=== PATIENT | male | born 1935 | race Caucasian/White ===

== ENCOUNTER 2018-01-02 13:55 | Outpatient (CLI) | payer MEDICARE | END 2018-01-02 13:56 | disposition home or self-care (01) | LOC: BICCT 13:55 | PROVIDERS: ATTEND Anesthesiology Pain Medicine | DX: M47.26 Other spondylosis with radiculopathy, lumbar region (principal); M43.16 Spondylolisthesis, lumbar region; M99.83 Other biomechanical lesions of lumbar region; N28.9 Disorder of kidney and ureter, unspecified | CPT/HCPCS: 72100; 72131 ==

== ENCOUNTER 2018-01-15 10:07 | Outpatient (CLI) | payer MEDICARE | END 2018-01-15 10:08 | disposition home or self-care (01) | LOC: BICULT 10:07 | PROVIDERS: ATTEND Anesthesiology Pain Medicine | DX: N28.89 Other specified disorders of kidney and ureter (principal); N28.1 Cyst of kidney, acquired | CPT/HCPCS: 76770 ==

== ENCOUNTER → 2018-02-13 | Day surgery (SDC) | payer MEDICARE ==
[~2018-02-13] MED LIST: Prevnar 13-Val Conj/PF 0.5 ML SYRINGE IM ONE
[2018-02-13 09:35] VITALS: TEMP 97; BMI 27.1
--- NOTE | 2018-02-13 13:03 | RAD ---
LUMBAR MYELOGRAM: History: Lumbar radiculopathy. Comparison: None. Exposure: 1.2 minutes. 1551.9 mGy*cm^2. FINDINGS: Initial two view radiographs of the lumbar spine demonstrate five lumbar type vertebral bodies. There is extensive osteophyte formation throughout the lumbar spine. Mild leftward curvature. There is 2.6 mm of retrolisthesis of L3 upon L4, 5.2 mm anterolisthesis of L5 upon S1. Vacuum disc phenomenon at L4-5 and L5-S1. Hypertrophic changes of the endplates was identified throughout the lumbar spine. Successful lumbar puncture for intrathecal contrast administration. A total of 10 cc of Isovue M 200 contrast was administered intrathecally. No immediate or post procedure complication. Technique: Consent was obtained to perform a lumbar puncture for intrathecal contrast administration. The back w as evaluated. The L4-5 level was deemed appropriate. The skin was prepped and draped in sterile fashi on. 1% Lidocaine, buffered with sodium bicarbonate used for local anesthesia. Under fluoroscopic guid ance, a 22 gauge spinal needle was advanced into the CSF space. Using short tubing catheter, a total of 10 cc of Isovue 200M contrast was administered intrathecally. Patient tolerated the procedure well . No immediate or post procedure complications. IMPRESSION: Successful lumbar puncture at the L4-5 level for intrathecal contrast administration. Please refer to post myelogram CT for further detail. POS: BRYON
--- NOTE | 2018-02-13 14:06 | CT ---
LUMBAR SPINE CT POST MYELOGRAM: Date: 02/13/18 HISTORY: Lumbar radiculopathy. COMPARISON: None. TECHNIQUE: Lumbar spine CT is performed after myelogram. Reformatted images are submitted for interpretation. FINDINGS: Right renal cyst measuring 2.5 cm. No retroperitoneal mass, lymphadenopathy, or hematoma. Aorta demon strates atherosclerosis. Mild prominence of the infrarenal aorta without definite aneurysm. There is evidence of diverticulosis, without evidence of diverticulitis. Conus medullaris terminates at the T12-L1 disc space level. Five lumbar-type vertebral bodies. Prominent osteophyte formation at the L1-L2 level. Mild leftward c urvature of the lumbar spine. Extensive hypertrophic changes involving the posterior elements at L2, L3, L4, and L5. Vacuum disc ph enomenon at L4-5 and L5-S1. Additional vacuum disc phenomenon at L1-L2 and L2-L3. 3.2 mm of retrolisthesis of L1 upon L2, 2.4 mm of retrolisthesis of L2 upon L3, 6.4 mm anterolisthesi s of L4 upon L5, 5.2 mm anterolisthesis of L5 upon S1. Vacuum joint phenomenon noted in the left face t joint at L4-L5. No evidence of spondylolisthesis, no evidence of spondylolysis. There is evidence of some extradural contrast along the posterior central spinal canal at T12, L1, an d to a lesser extent at L4. T11-T12: No significant central canal stenosis. Foramina are patent. T12-L1: No significant central canal stenosis. Foramina are patent. L1-L2: Broad based disc bulge, ligamentum flavum thickening, and facet hypertrophy result in mild central ca nal stenosis. Mild to moderate bilateral foraminal narrowing. L2-L3: There is ligamentum flavum thickening and facet hypertrophy. Mild central canal stenosis due to disc material and posterior element hypertrophy. Moderato right and mild left foraminal narrowing. L3-L4: Generalized disc bulge, ligamentum flavum thickening, and facet hypertrophy result in mild to moderat e central canal stenosis. Mild to moderate right and mild left foraminal narrowing. L4-L5: Broad based disc bulge, ligamentum flavum thickening, and facet hypertrophy result in severe central canal stenosis. Moderate right and moderate to severe left foraminal narrowing due to disc material a nd posterior element hypertrophy. L5-S1: Posterior element hypertrophy results in mild to moderate central canal stenosis. Right neural forame n is patent. Severe left foraminal narrowing due to osteophyte formation of the end plate and left fa cet hypertrophy. IMPRESSION: 1. Significant central canal stenosis at L4-5. 2. Varying degrees of foramina stenosis as described above. 3. Spondylolisthesis as described above. POS: BRYON
== END ==
LOC: RAD 08:36
PROVIDERS: ATTEND Neurological Surgery
DX: M48.061 Spinal stenosis, lumbar region without neurogenic claudication (principal); M47.26 Other spondylosis with radiculopathy, lumbar region; M43.16 Spondylolisthesis, lumbar region; I25.2 Old myocardial infarction; Z87.891 Personal history of nicotine dependence; Z79.82 Long term (current) use of aspirin; Z79.899 Other long term (current) drug therapy; Z88.0 Allergy status to penicillin; Z88.8 Allergy status to other drugs, medicaments and biological substances
CPT/HCPCS: 62304; 72132

== ENCOUNTER 2018-05-14 08:48 | Outpatient (CLI) | payer MEDICARE ==
[2018-05-14 11:32] LABS: Hemoglobin 13.1 g/dL (14.0-18.0); Mean Corpuscular HGB CONC 31.9 g/dL (32.0-36.0); Mean Corpuscular Hemoglobin 32.4 pg (27.0-31.0); Mean Platelet Volume 11.9 fL (7.4-10.4); Platelet Count 297 thou/uL (130-400); RBC Distribution Width 14.1 % (11.5-14.5); Red Blood Cell (RBC) Count 4.03 mill/uL (4.70-6.10); White Blood Cell (WBC) Count 6.6 thou/uL (4.8-10.8)
[2018-05-14 11:33] LABS: Prothrombin Time 13.6 SEC (12.0-14.7)
[2018-05-14 11:51] LABS: Anion Gap 9 mmol/L (10-20); BUN (Urea Nitrogen) 14 mg/dL (8.4-25.7); Calc. Creatinine Clearance 0 mL/min (70-130); Calcium 9.4 mg/dL (7.8-10.44); Carbon Dioxide 28 mmol/L (23-31); Chloride 106 mmol/L (98-107); Estimated GFR-MDRD 87; Glucose 95 mg/dL (83-110); Potassium 4.5 mmol/L (3.5-5.1); Sodium 138 mmol/L (136-145)
--- NOTE | 2018-05-16 15:07 | EKG ---
Test Reason : Blood Pressure : / mmHG Vent. Rate : 060 BPM Atrial Rate : 060 BPM P-R Int : 080 ms QRS Dur : 144 ms QT Int : 446 ms P-R-T Axes : 050 -27 086 degrees QTc Int : 446 ms AV sequential or dual chamber electronic pacemaker No previous ECGs available Confirmed by THONY HAMMOND MD ([id number]) on 05/16/2018 3:07:17 PM Referred By: PONCHO Confirmed By:THONY HAMMOND MD
== END 2018-05-14 08:49 | disposition home or self-care (01) ==
LOC: LABBT 08:48
PROVIDERS: ATTEND Neurological Surgery
DX: Z01.818 Encounter for other preprocedural examination (principal); M43.16 Spondylolisthesis, lumbar region; M48.061 Spinal stenosis, lumbar region without neurogenic claudication
CPT/HCPCS: 80048; 85027; 85610; 85730; 93005; 93010

== ENCOUNTER 2018-05-14 09:00 | Inpatient (IN) | payer MEDICARE ==
--- NOTE | 2018-05-14 13:53 | HP ---
CHIEF COMPLAINT: Lumbar back pain. HISTORY OF PRESENT ILLNESS: Mr. Rome is a pleasant 82-year-old man who began to have back pain and leg symptoms after doing his spring gardening last year. At first, the symptoms were bilateral, but as time passed and injections have been done the right is the side that bothers him now. The left i s pain free. There is no bowel or bladder symptoms. The right leg pain comes on with walking more t leonard 100 feet or standing too long. There is a sense that the leg weakens with more time spent uprigh t. Leaning forward or finding somewhere to sit makes the pain better. He is more symptomatic in the morning when just rising from bed. REVIEW OF SYSTEMS: A 10-point review of symptoms has been completed and is negative other than state d above in the HPI. PAST MEDICAL HISTORY: Heart attack in 1996, stroke in 02/2016 and arthritis. PAST SURGICAL HISTORY: Stents placed in 1996, defibrillator in 2013, bilateral knee replacements, AC DF in 1969, and cervical laminectomy in 1986. FAMILY HISTORY: Father is . Mother is . SOCIAL HISTORY: The patient is a nonsmoker, does not use any tobacco products, does not drink alcoho l or use any other illicit drugs. 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 MEDICATIONS: CoQ10, digoxin, Entresto, Ezetimibe, Samotidine, finasteride, fish oil, fluconazole, mu ltivitamin, Metamucil, aspirin. ALLERGIES: PENICILLIN, HYDROCODONE, STATINS, CARVEDILOL, METOPROLOL. PHYSICAL EXAMINATION: RESPIRATORY: Regular work of breathing on room air. Normal chest rise bilaterally symmetrical. CARDIOVASCULAR: Regular rate and rhythm. Normal S1, S2. NEUROLOGIC: Cranial nerves are intact. Cerebellar exam: There is no truncal ataxia. Gait and stat ion are normal. Toe touch, toe, heel and tandem walking are performed smoothly without weakness or a praxia. Motor exam: There is normal strength in the iliopsoas, quadriceps, hamstrings, anterior tib ial, EHL, gastroc, and toe flexors. Sensory exam: There is no dermatomal sensory loss in L1, L2, L3 , L4, L5 or S1. EXTREMITIES: Lower extremities: Orthopedic, negative SLR. Reflex exam; reflexes are normal at the patellar and absent at the Achilles. SPINE: Spinal exam, there is no tenderness to palpation and percussion along the midline spine from T12 through S1. CT: Severe degenerative arthritic changes and sacroiliac changes and Baastrup's phenomenon also like ly right lateral recess disease at L4-5, S1. Spine appears stable in flexion, extension in spite of multiple listhesis. 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 PLAN: Dr. Ochoa has offered a laminectomy and T-lift. Informed consent: We have discussed jomar cations, risks, benefits, and alternatives, and expected results from surgery. The risks discussed i ncluded, but were not limited to bleeding, infection, CSF leak, nerve damage, weakness, incontinence, cauda equina injury, arachnoiditis, paralysis, ventilator dependence, wheelchair dependence, loss of vision, hardware malplacement, cardiopulmonary complications of anesthesia or . Long-term comp lications discussed included, but were not limited to degeneration of surrounding disks and the need for further surgery. The patient states he understands the risks and is willing to proceed with surg aric.
[2018-05-15] MEDS ORDERED: Clindamycin/D5W 900 mg/50 ml Premix Bag ONE (06:11)
[2018-05-15] MEDS ORDERED: Levofloxacin 500 mg/D5W 100 ml Premix Bag ONE (06:11)
[2018-05-15] MEDS ORDERED: Thrombin 5000 UNITS/5 ML VIAL ONE (06:18)
[2018-05-15] MEDS ORDERED: Sodium Chloride 0.9% 30 ML ONE (06:18)
[2018-05-15] MEDS ORDERED: Bupivacaine HCl 0.5%/Epinephrine 1:200,000/PF 30 ml Vial ONE (06:18)
[2018-05-15] MEDS ORDERED: Fentanyl 250 MCG/5 ML VIAL ONE (06:51)
[2018-05-15] MEDS ORDERED: PROPOFOL 200 MG/20 ML VIAL ONE (11:12)
[2018-05-15] MEDS ORDERED: Glycopyrrolate 0.2 MG/ML 5 ML SYRINGE ONE (11:12)
[2018-05-15] MEDS ORDERED: ePHEDrine/0.9% NaCl/PF SYRINGE 50 mg/10 ml ONE (11:12)
[2018-05-15] MEDS ORDERED: Dexamethasone 20 MG/5 ML VIAL ONE (11:12)
[2018-05-15] MEDS ORDERED: Ondansetron HCl/PF 4 MG/2 ML Vial ONE (11:12)
[2018-05-15] MEDS ORDERED: PHENYLEPHRINE-NS 100 MCG/ML 10 ML SYRINGE ONE (11:12)
[2018-05-15] MEDS ORDERED: Ondansetron HCl/PF 4 MG/2 ML Vial IVP PRN (11:18)
[2018-05-15] MEDS ORDERED: Promethazine HCl 25 MG/ML VIAL IM PRN ×2 (11:18→14:51)
[2018-05-15] MEDS ORDERED: Promethazine HCl 25 MG/ML VIAL SLOW IVP PRN (11:18)
[2018-05-15] MEDS ORDERED: Rocuronium Bromide 50 MG/5 ML VIAL ONE (11:25)
[2018-05-15] MEDS ORDERED: Fentanyl 100 MCG/2 ML VIAL ONE ×3 (14:10→16:13)
--- NOTE | 2018-05-15 14:37 | OP ---
DATE OF PROCEDURE: 05/15/2018 NEUROSURGERY OPERATIVE NOTE SURGEON: Alise Ochoa M.D. ELECTROCARDIOGRAPH OPERATOR: Adri Villalobos PA-C. PREOPERATIVE INDICATION: Treat pain, prevent neurological deterioration. PREOPERATIVE DIAGNOSES: Degenerative lumbar spine disease, spondylolisthesis at L4-L5 and L5-S1, sco liosis, lumbar stenosis, neurogenic claudication, foraminal disease. POSTOPERATIVE DIAGNOSES: Degenerative lumbar spine disease, spondylolisthesis at L4-L5 and L5-S1, sc oliosis, lumbar stenosis, neurogenic claudication, foraminal disease. OPERATIVE PROCEDURE: Decompressive laminectomy, medial facetectomy and foraminotomy for decompressio n of neural elements at L3-L4, L4-L5 and L5-S1, transforaminal lumbar interbody arthrodesis, placemen t of intervertebral biomechanical device at L4-L5 and L5-S1, pedicle screw and kali instrumentation at L4-L5 and L5-S1, posterolateral arthrodesis L4-L5, L5-S1. PREOPERATIVE MEDICATION: Levaquin 500 mg IV, clindamycin 900 mg IV. DRAIN NUMBER: One. DRAIN TYPE: 10-Divehi Kin. PROCEDURE IN DETAIL: The patient was brought to the operating room. General endotracheal anesthesia was induced. The patient was positioned on the [place] frame with his chest and hips supported by t he appropriate attachments. A lateral fluoro radiograph was used to plan our incision. The lumbar s kin was sterilely prepped and draped. We opened with a 10-blade knife and controlled bleeding with b ipolar and monopolar cautery. We used monopolar cautery to dissect through subcutaneous tissues to t he thoracodorsal fascia. The fascia was incised in the midline and reflected the paraspinal muscles off the spinous process and lamina of L3, L4, L5 and S1. A self-retaining retractor was placed and a lateral fluoro radiograph was used to confirm the levels upon which we were operating. We then used Adson and Kerrison rongeurs to fashion a laminectomy from S1 all the way up to L3. We widened our l aminectomy defect until we were flush with the pedicles at L3, L4, L5 and S1. We decompressed the la teral recesses by performing medial facetectomies. We ensured that the neural elements were all deco mpressed at the interspaces and out their foramina and by performing wide foraminotomies over the exi ting nerve roots. With our neural decompression secure, we turned our attention to arthrodesis. Using bony anatomic landmarks, palpation of the medial portion of the pedicles and lateral fluoro rad iograph as a guide, we chose entry points for pedicle screws at L4, L5 and S1. We used the bone awl to create our trajectory and then tapped our trajectories. We placed pedicle screws bilaterally at L 4, L5 and S1. We removed the inferior articular process of L4 and L5. We widely opened the foramen at L4-L5 and L5 -S1. We accessed the disk space with a 15-blade knife through the open foramina and removed disk con tents using curettes and rongeurs. We measured the height of the interspace with a bone rasp. The l umbosacral interspace measured 9 mm and the L4-L5 interspace measured 12 mm. The appropriately sized PEEK intervertebral grafts were brought into the field. Our laminectomy bone was cleaned of all the ir soft tissue attachments, morselized and added to demineralized bone matrix as our fusion substrate . The substrate was packed into the interbody grafts and the grafts were advanced into the interspac es under radiographic guidance to the appropriate depth. We irrigated copiously with bacitracin irri gation. We used a high-speed drill to decorticate the transverse processes at L4 and L5 and the sacr al ala bilaterally. Over the decorticated bone, we left demineralized bone matrix and morselized aut ograft as our posterolateral fusion substrate. We placed rods down in the screw heads after we took a 360-degree image set using our isocentric C-arm. This image set confirmed adequate positioning of the pedicle screw instrumentation. The rods were placed and the screw heads and caps tightened over the rods. We used gentle compression across the interspace to keep the interbody grafts in place. W e tightened the caps down over the rods using a tliroa-xswracn-aaprqc mechanism to adequate tightness . We tunneled a drain inferiorly through a separate stab incision. Vancomycin powder was added to t he wound and we closed the wound in anatomic layers over the drain. A sterile dressing was applied. This was a clean case and no contamination.
[2018-05-15] MEDS ORDERED: Acetaminophen 325 MG TAB PO PRN (14:51)
[2018-05-15] MEDS ORDERED: Acetaminophen 650 MG Suppository PR PRN (14:51)
[2018-05-15] MEDS ORDERED: diphenhydrAMINE 50 MG/ML VIAL IVP PRN (14:51)
[2018-05-15] MEDS ORDERED: diphenhydrAMINE 25 MG CAP PO PRN (14:51)
[2018-05-15] MEDS ORDERED: Bisacodyl 10 MG SUPP PR PRN (14:51)
[2018-05-15] MEDS ORDERED: Promethazine 25 MG TAB PO PRN (14:51)
[2018-05-15] MEDS ORDERED: Zolpidem Tartrate 5 MG TAB PO PRN (14:51)
[2018-05-15] MEDS ORDERED: Milk Of Magnesia 30 ML UDCUP PO PRN (14:51)
[2018-05-15] MEDS ORDERED: Fleet Enema 133 ML BOT PR PRN (14:51)
[2018-05-15] MEDS ORDERED: Calcium Carbonate 500 MG ChewTAB PO PRN (15:03)
[2018-05-15 15:32] LABS: #Basophils 0.1 thou/uL (0.0-0.2); #Lymphocytes 1.1 thou/uL (1.20-3.40); #Monocytes 0.3 thou/uL (0.11-0.59); #Neutrophils 11.5 thou/uL (1.40-6.50); %Basophils 0.5 % (0.0-1.0); %Eosinophils 0.2 % (0.0-10.0); %Lymphocytes 8.2 % (21.0-51.0); %Monocytes 2.6 % (0.0-10.0); %Neutrophils 88.5 % (42.0-75.0); Hemoglobin 11.3 g/dL (14.0-18.0); Mean Corpuscular HGB CONC 33.8 g/dL (32.0-36.0); Mean Corpuscular Hemoglobin 34.1 pg (27.0-31.0); Mean Platelet Volume 11.5 fL (7.4-10.4); Platelet Count 276 thou/uL (130-400); Red Blood Cell (RBC) Count 3.31 mill/uL (4.70-6.10)
[2018-05-15 15:44] LABS: Large Platelets SLIGHT; MDiff Complete? YES; Ovalocytes SLIGHT = 2-5 cells (100X) (0-1/hpf); PLT Morphology Comment Appears Adequate; Polychromasia SLIGHT = 2-3 cells (100X) (0-2/hpf)
[2018-05-15] MEDS: Ketorolac Tromethamine 30 MG/ML VIAL IVP SCH ×2 (18:42→23:35)
[2018-05-15] MEDS: Sodium Chloride 0.9% 1,000 ML IV SCH (20:28)
[2018-05-15] MEDS ORDERED: OLOPATADINE HCL EA NARE SCH (21:00)
[2018-05-15] MEDS: Ezetimibe 10 MG TAB PO SCH (22:51)
[2018-05-15] MEDS: Fluticasone Propionate Nasal Spray 16 gm Bottle NASAL SCH (22:52)
[2018-05-15] MEDS: Digoxin 0.125 MG TAB PO SCH (22:53)
[2018-05-15] MEDS: Sacubitril 49 MG/Valsartan 51 MG TABLET PO SCH (22:53)
[2018-05-15] MEDS: Clindamycin/D5W 900 MG in Premix Bag 1 BAG IVPB SCH (22:54)
[2018-05-15] MEDS: Sodium Chloride 0.9% 500 ML IVPB SCH (23:00)
[2018-05-15 23:06] VITALS: BMI 26.2
[2018-05-16] MEDS: Sodium Chloride 0.9% 500 ML IVPB SCH (00:43)
[2018-05-16 04:10] LABS: #Eosinphils 0.1 thou/uL (0.0-0.7); #Lymphocytes 1.5 thou/uL (1.20-3.40); #Monocytes 0.5 thou/uL (0.11-0.59); #Neutrophils 9.9 thou/uL (1.40-6.50); %Basophils 0.2 % (0.0-1.0); %Eosinophils 0.6 % (0.0-10.0); %Lymphocytes 12.2 % (21.0-51.0); %Monocytes 4.3 % (0.0-10.0); %Neutrophils 82.8 % (42.0-75.0); Hemoglobin 9.4 g/dL (14.0-18.0); Mean Corpuscular HGB CONC 33.8 g/dL (32.0-36.0); Mean Corpuscular Hemoglobin 34.2 pg (27.0-31.0); Mean Platelet Volume 11.5 fL (7.4-10.4); Platelet Count 232 thou/uL (130-400); Red Blood Cell (RBC) Count 2.73 mill/uL (4.70-6.10); White Blood Cell (WBC) Count 11.9 thou/uL (4.8-10.8)
[2018-05-16] MEDS: Sodium Chloride 0.9% 1,000 ML IV SCH ×2 (05:04→22:26)
[2018-05-16] MEDS: Ketorolac Tromethamine 30 MG/ML VIAL IVP SCH ×3 (05:19→17:23)
[2018-05-16] MEDS: Clindamycin/D5W 900 MG in Premix Bag 1 BAG IVPB SCH ×3 (05:20→22:00)
--- NOTE | 2018-05-16 07:24 | PRG ---
DATE OF SERVICE: 05/16/2018 I saw Mr. Rome this morning. He is 1 day out from a 3-level decompression and 2 level fusion of th e lumbosacral spine. Mr. Rome has had significant drain output reported by the nurse, but there is nothing on the electronic chart to tell me what the accurate volume is. Mr. Rome is awake and sadaf rt this morning. He is sitting up in bed. He says he feels great. There is no radiating pain down the lower extremities. He is happy with the results of his operation thus far and would like to get out of bed with physical therapy today. We will make arrangements for that to happen. We will kimo riaze to monitor his drain output and once it tapers below our threshold of average of 5 mL an hour, th en we will remove it.
[2018-05-16] MEDS: Ubidecarenone 50 MG CAP PO SCH (09:18)
[2018-05-16] MEDS: Sacubitril 49 MG/Valsartan 51 MG TABLET PO SCH ×2 (09:18→21:59)
[2018-05-16] MEDS: Finasteride 5 MG TAB PO SCH (09:19)
[2018-05-16] MEDS: Metamucil PACK PO SCH (09:20)
[2018-05-16] MEDS: Fluticasone Propionate Nasal Spray 16 gm Bottle NASAL SCH ×2 (09:20→22:25)
[2018-05-16] MEDS: Famotidine 20 MG TAB PO SCH ×2 (09:21→18:07)
[2018-05-16] MEDS: Acetaminophen/Codeine 30-300mg Tablet PO PRN ×3 (14:49→22:15)
[2018-05-16] MEDS: Ezetimibe 10 MG TAB PO SCH (21:59)
[2018-05-16] MEDS: Multivitamin W/ Minerals 1 TAB PO SCH (22:00)
[2018-05-16] MEDS: Digoxin 0.125 MG TAB PO SCH (22:03)
[2018-05-16] MEDS: Mag-Al 1200 mg/1200 mg/30 ML UDCUP PO PRN (22:16)
[2018-05-17] MEDS: Ketorolac Tromethamine 30 MG/ML VIAL IVP SCH ×3 (01:15→20:53)
[2018-05-17] MEDS: Clindamycin/D5W 900 MG in Premix Bag 1 BAG IVPB SCH ×3 (06:41→20:55)
[2018-05-17] MEDS: Sodium Chloride 0.9% 1,000 ML IV SCH ×5 (07:40→14:04)
[2018-05-17] MEDS: Acetaminophen/Codeine 30-300mg Tablet PO PRN ×2 (09:03→20:52)
[2018-05-17] MEDS: Sacubitril 49 MG/Valsartan 51 MG TABLET PO SCH ×2 (09:04→20:54)
[2018-05-17] MEDS: Finasteride 5 MG TAB PO SCH (09:04)
[2018-05-17] MEDS: Famotidine 20 MG TAB PO SCH (09:04)
[2018-05-17] MEDS: Ubidecarenone 50 MG CAP PO SCH (09:04)
[2018-05-17 10:15] LABS: #Basophils 0.1 thou/uL (0.0-0.2); #Eosinphils 0.4 thou/uL (0.0-0.7); #Lymphocytes 1.5 thou/uL (1.20-3.40); #Monocytes 0.6 thou/uL (0.11-0.59); #Neutrophils 6.7 thou/uL (1.40-6.50); %Basophils 0.6 % (0.0-1.0); %Eosinophils 4.1 % (0.0-10.0); %Lymphocytes 16.4 % (21.0-51.0); %Monocytes 6.6 % (0.0-10.0); %Neutrophils 72.3 % (42.0-75.0); Hemoglobin 8.9 g/dL (14.0-18.0); Mean Corpuscular HGB CONC 33.1 g/dL (32.0-36.0); Mean Corpuscular Hemoglobin 33.3 pg (27.0-31.0); Mean Platelet Volume 11.4 fL (7.4-10.4); Platelet Count 217 thou/uL (130-400); Red Blood Cell (RBC) Count 2.66 mill/uL (4.70-6.10); White Blood Cell (WBC) Count 9.3 thou/uL (4.8-10.8)
[2018-05-17 10:37] LABS: ALT (SGPT) 14 U/L (8-55); AST (SGOT) 23 U/L (5-34); Albumin 3.3 g/dL (3.4-4.8); Alkaline Phosphatase 60 U/L (40-150); Anion Gap 10 mmol/L (10-20); BUN (Urea Nitrogen) 23 mg/dL (8.4-25.7); Bilirubin, Total 1.3 mg/dL (0.2-1.2); Calc. Creatinine Clearance 71 mL/min (70-130); Calcium 8.5 mg/dL (7.8-10.44); Carbon Dioxide 25 mmol/L (23-31); Chloride 101 mmol/L (98-107); Estimated GFR-MDRD 72; Globulin 2.4 g/dL (2.4-3.5); Glucose 102 mg/dL (83-110); Protein, Total 5.7 g/dL (5.8-8.1); Sodium 132 mmol/L (136-145)
[2018-05-17] MEDS: Mag-Al 1200 mg/1200 mg/30 ML UDCUP PO PRN (11:03)
[2018-05-17] MEDS: Fluticasone Propionate Nasal Spray 16 gm Bottle NASAL SCH ×2 (12:21→20:55)
[2018-05-17] MEDS: Metamucil PACK PO SCH (12:21)
[2018-05-17] MEDS: traMADol HCl 50 MG TAB PO PRN (14:15)
--- NOTE | 2018-05-17 14:19 | PRG ---
DATE OF SERVICE: 05/17/2018 SUBJECTIVE: Mr. Rome is postoperative day 2 from lumbar decompression and fusion. He appears to b e in very good spirits this morning and other than left hip pain, there is very likely lumbar radicul itis. He is mobilizing to the chair. His hemoglobin is 8.9 this morning, it was 9.4 yesterday. His drain output has been recorded as almost half a liter, which I find a bit unusual given the change o f hemoglobin from 9.4-8.9. He did have a blood pressure overnight at 4 in the morning that was 90/46 . However, he has no tachycardia with a pulse of 60. What I would do is discontinue his Toradol and we will continue to monitor his drain output. I do not think he is demonstrating any signs or sympt oms of symptomatic postoperative anemia. We will also have him evaluated by inpatient rehabilitation .
[2018-05-17] MEDS: Multivitamin W/ Minerals 1 TAB PO SCH (20:54)
[2018-05-17] MEDS: Ezetimibe 10 MG TAB PO SCH (20:54)
[2018-05-17] MEDS: Digoxin 0.125 MG TAB PO SCH (20:54)
[2018-05-18] MEDS: Ketorolac Tromethamine 30 MG/ML VIAL IVP SCH (04:06)
[2018-05-18] MEDS: Sodium Chloride 0.9% 1,000 ML IV SCH ×5 (04:08→20:54)
[2018-05-18] MEDS: Clindamycin/D5W 900 MG in Premix Bag 1 BAG IVPB SCH ×3 (05:53→20:55)
[2018-05-18] MEDS: Metamucil PACK PO SCH (08:36)
[2018-05-18] MEDS: Ubidecarenone 50 MG CAP PO SCH (08:36)
[2018-05-18] MEDS: Finasteride 5 MG TAB PO SCH (08:36)
[2018-05-18] MEDS: Famotidine 20 MG TAB PO SCH (08:36)
[2018-05-18] MEDS: Fluticasone Propionate Nasal Spray 16 gm Bottle NASAL SCH ×2 (08:37→21:48)
[2018-05-18] MEDS: Acetaminophen/Codeine 30-300mg Tablet PO PRN ×3 (08:47→19:19)
[2018-05-18 08:59] LABS: Hemoglobin 8.9 g/dL (14.0-18.0); Mean Corpuscular Hemoglobin 34.3 pg (27.0-31.0); Mean Platelet Volume 11.7 fL (7.4-10.4); Platelet Count 216 thou/uL (130-400); RBC Distribution Width 14.2 % (11.5-14.5); Red Blood Cell (RBC) Count 2.58 mill/uL (4.70-6.10); White Blood Cell (WBC) Count 7.6 thou/uL (4.8-10.8)
[2018-05-18 09:05] LABS: Anion Gap 10 mmol/L (10-20); BUN (Urea Nitrogen) 19 mg/dL (8.4-25.7); Calc. Creatinine Clearance 82 mL/min (70-130); Calcium 8.2 mg/dL (7.8-10.44); Carbon Dioxide 22 mmol/L (23-31); Chloride 106 mmol/L (98-107); Estimated GFR-MDRD 85; Glucose 99 mg/dL (83-110); Potassium 4.4 mmol/L (3.5-5.1); Sodium 134 mmol/L (136-145)
[2018-05-18 09:22] LABS: #Basophils 0.1 thou/uL (0.0-0.2); #Eosinphils 0.6 thou/uL (0.0-0.7); #Lymphocytes 1.6 thou/uL (1.20-3.40); #Monocytes 0.5 thou/uL (0.11-0.59); #Neutrophils 4.8 thou/uL (1.40-6.50); %Eosinophils 7.8 % (0.0-10.0); %Lymphocytes 21.2 % (21.0-51.0); %Neutrophils 62.9 % (42.0-75.0); Acanthocytes SLIGHT = 1-5 cells (100X) (None Seen); Burr Cells SLIGHT = 2-5 cells (100X) (0-1/hpf); Hypochromia SLIGHT = 6-15 cells (100X) (0-5/hpf); Large Platelets SLIGHT; MDiff Complete? YES; PLT Morphology Comment Appears Adequate; Polychromasia SLIGHT = 2-3 cells (100X) (0-2/hpf)
[2018-05-18] MEDS: Sacubitril 49 MG/Valsartan 51 MG TABLET PO SCH ×2 (10:44→20:55)
[2018-05-18] MEDS: tiZANidine HCl 4 MG TAB PO PRN ×2 (10:44→19:53)
--- NOTE | 2018-05-18 11:07 | PRG ---
DATE OF SERVICE: 05/18/2018 SUBJECTIVE: Mr. Rome is 3 days out from lumbar decompression and fusion. He has pain when he trie s to sit up in bed. He is not on muscle relaxants. We will initiate those. We will augment his Tyl enol #3 with the tizanidine and stop his Toradol. His drain output remains a bit on the high side at 220 mL over the last 24 hours. Although his hemoglobin this morning remains stable at 8.9, it was 8 .9 yesterday and 9.4 the day before. His blood pressure remains stable in the 100-134 range systolic and 50-70 range diastolic. He does not have tachycardia with a heart rate of 67-70, he is afebrile. Neurologically, he continues to do well. We just simply need to get his pain under better control. We will continue to work in this regard. He does have allergies; however, to hydrocodone which marguerite es narcotic selection a bit limited.
[2018-05-18] MEDS: traMADol HCl 50 MG TAB PO PRN (12:32)
[2018-05-18] MEDS: Digoxin 0.125 MG TAB PO SCH (20:54)
[2018-05-18] MEDS: Ezetimibe 10 MG TAB PO SCH (20:54)
[2018-05-18] MEDS: Multivitamin W/ Minerals 1 TAB PO SCH (20:55)
[2018-05-19] MEDS: Acetaminophen/Codeine 30-300mg Tablet PO PRN ×2 (02:26→09:18)
[2018-05-19] MEDS: Clindamycin/D5W 900 MG in Premix Bag 1 BAG IVPB SCH ×3 (06:18→22:54)
[2018-05-19] MEDS: tiZANidine HCl 4 MG TAB PO PRN (06:22)
--- NOTE | 2018-05-19 07:03 | PRG ---
DATE OF SERVICE: 05/19/2018 Mr. Rome was seen in his hospital room this morning. His drain output prevented removal of that dr green over the weekend. He is continuing to work with physical therapy. He has some urinary retention overnight and his left lower extremity is a little bit achy. Vital signs overnight have been stable . The output from his drain over 12 hours was about 100 mL. It seems to be less this morning than i t has been recently. I do not find any new neurological deficits. I instructed Mr. Rome on pulling his knees to his chest as a stretch while he is in bed. I reassur ed him that his incision looks fine, that the drain is tapering. I believe the urinary issues are a combination of prostatic hypertrophy and some affective narcotic analgesics. Hopefully, with standin g and walking this improves today. Mr. Rome is emptying his bladder well and ready for drain removal, then arrangements can be made fo r him to transfer to inpatient rehabilitation.
[2018-05-19] MEDS: Finasteride 5 MG TAB PO SCH (09:17)
[2018-05-19] MEDS: Sacubitril 49 MG/Valsartan 51 MG TABLET PO SCH ×2 (09:18→22:53)
[2018-05-19] MEDS: Ubidecarenone 50 MG CAP PO SCH (09:18)
[2018-05-19] MEDS: Metamucil PACK PO SCH (09:19)
[2018-05-19] MEDS: Famotidine 20 MG TAB PO SCH (13:23)
[2018-05-19] MEDS: traMADol HCl 50 MG TAB PO PRN ×2 (13:24→22:55)
[2018-05-19] MEDS: Sodium Chloride 0.9% 1,000 ML IV SCH ×3 (13:27→22:55)
[2018-05-19] MEDS ORDERED: Tamsulosin HCl 0.4 MG CAP PO PRN (14:38)
[2018-05-19] MEDS: Fluticasone Propionate Nasal Spray 16 gm Bottle NASAL SCH ×2 (21:03→22:54)
[2018-05-19] MEDS: Ezetimibe 10 MG TAB PO SCH (22:52)
[2018-05-19] MEDS: Digoxin 0.125 MG TAB PO SCH (22:52)
[2018-05-19] MEDS: Multivitamin W/ Minerals 1 TAB PO SCH (22:53)
[2018-05-20 00:50] LABS: Bilirubin Negative (Negative); Blood, Urine Negative (Negative); Clarity CLEAR (Clear); Glucose, Urine (Dipstick) Negative (Negative); Leukocyte Negative (Negative); Nitrite Negative (Negative); Protein, Urine (Dipstick) Negative (Neg-Trace); Specific Gravity, Urine 1.012 (1.002-1.036); Urobilinogen 0.2 mg/dL (0.2-1.0); pH, Urine 7.5 (5.0-9.0)
[2018-05-20] MEDS: Clindamycin/D5W 900 MG in Premix Bag 1 BAG IVPB SCH ×2 (06:23→14:02)
[2018-05-20] MEDS: traMADol HCl 50 MG TAB PO PRN (06:24)
--- NOTE | 2018-05-20 06:57 | PRG ---
DATE OF SERVICE: 05/20/2018 Mr. Rome is 5 days out from lumbar decompression fusion. His drain output is recorded in 2 separat e areas of the electronic record and his 24-hour output is either 120 or 200. His nurse reports 150. The 3 separate numbers are confusing to me. Vital signs are stable. The neurological examination is reassuring. A Giraldo catheter has remained i n place since I&O cathing has been done frequently. This likely related to a combination of prostati c hypertrophy and a medication effect. Mr. Rome wants to keep the catheter in place. When inpatient rehabilitation bed is available, he can make a transfer. We will send him out first w ith a catheter in place. I would like our drain output to be defined a bit better. If there is less than 5 mL an hour on average over the course of 6-8 hours (therefore, less than 30 mL in 6 hours or less than 40 mL 8 hours) in the catheter, then the drain can be removed. I hope he continues on ant ibiotic therapy while the drain is in place.
[2018-05-20] MEDS: Ubidecarenone 50 MG CAP PO SCH (10:01)
[2018-05-20] MEDS: Famotidine 20 MG TAB PO SCH (10:01)
[2018-05-20] MEDS: Finasteride 5 MG TAB PO SCH (10:01)
[2018-05-20] MEDS: Sacubitril 49 MG/Valsartan 51 MG TABLET PO SCH ×2 (10:01→20:53)
[2018-05-20] MEDS: Fluticasone Propionate Nasal Spray 16 gm Bottle NASAL SCH ×2 (10:02→20:19)
[2018-05-20] MEDS: Metamucil PACK PO SCH (10:02)
[2018-05-20] MEDS: Sodium Chloride 0.9% 1,000 ML IV SCH ×2 (11:31→23:32)
[2018-05-20] MEDS: Acetaminophen/Codeine 30-300mg Tablet PO PRN (12:53)
[2018-05-20] MEDS: tiZANidine HCl 4 MG TAB PO PRN (12:53)
[2018-05-20] MEDS: Ezetimibe 10 MG TAB PO SCH (20:53)
[2018-05-20] MEDS: Digoxin 0.125 MG TAB PO SCH (20:53)
[2018-05-20] MEDS: Multivitamin W/ Minerals 1 TAB PO SCH (20:53)
[2018-05-20] MEDS: Clindamycin 150 MG CAP PO SCH (23:19)
[2018-05-21] MEDS: Acetaminophen/Codeine 30-300mg Tablet PO PRN ×3 (03:47→12:34)
[2018-05-21] MEDS: tiZANidine HCl 4 MG TAB PO PRN (03:47)
[2018-05-21] MEDS: Clindamycin 150 MG CAP PO SCH (06:14)
[2018-05-21] MEDS: Famotidine 20 MG TAB PO SCH (07:39)
[2018-05-21] MEDS: Metamucil PACK PO SCH (08:58)
[2018-05-21] MEDS: Ubidecarenone 50 MG CAP PO SCH (08:58)
[2018-05-21] MEDS: Sacubitril 49 MG/Valsartan 51 MG TABLET PO SCH (08:58)
[2018-05-21] MEDS: Finasteride 5 MG TAB PO SCH (08:58)
[2018-05-21] MEDS: Fluticasone Propionate Nasal Spray 16 gm Bottle NASAL SCH (08:58)
--- NOTE | 2018-05-21 10:16 | PRG ---
DATE OF SERVICE: 05/21/2018 Mr. Rome was seen early this morning on rounds. His drain was removed around 4:00 a.m. His drain output tapered off nicely. He still has a bit of bursitis and iliotibial band tightness on the left, but his neurological complaints from prior to surgery resolved with this decompression fusion. He i s happy with the result of his operation, thus far, but needs a bit more rehabilitation before it bec omes independent enough to go home. Arrangements are being made for transfer today.
[2018-05-21] MEDS: Sodium Chloride 0.9% 1,000 ML IV SCH (10:25)
[2018-05-21 11:52] VITALS: BP 122/65; TEMP 98.3
== END 2018-05-21 14:20 | DRG 460 ==
LOC: SURG A 05-15 05:40 → SJJU 05-15 18:10
PROVIDERS: ADMIT Neurological Surgery; ATTEND Neurological Surgery
PROC: 0SG00AJ Fusion of Lumbar Vertebral Joint with Interbody Fusion Device, Posterior Approach, Anterior Column, Open Approach (ICD-10-PCS; principal; 2018-05-15)
PROC: 01NB0ZZ Release Lumbar Nerve, Open Approach (ICD-10-PCS; 2018-05-15)
PROC: 0SG30AJ Fusion of Lumbosacral Joint with Interbody Fusion Device, Posterior Approach, Anterior Column, Open Approach (ICD-10-PCS; 2018-05-15)
DX: M43.16 Spondylolisthesis, lumbar region (principal); M47.816 Spondylosis without myelopathy or radiculopathy, lumbar region; M48.061 Spinal stenosis, lumbar region without neurogenic claudication; Z01.818 Encounter for other preprocedural examination; Z95.5 Presence of coronary angioplasty implant and graft; Z96.653 Presence of artificial knee joint, bilateral; Z95.810 Presence of automatic (implantable) cardiac defibrillator; Z79.899 Other long term (current) drug therapy; Z79.82 Long term (current) use of aspirin; Z88.0 Allergy status to penicillin; Z88.5 Allergy status to narcotic agent; Z88.8 Allergy status to other drugs, medicaments and biological substances; R33.9 Retention of urine, unspecified; M19.90 Unspecified osteoarthritis, unspecified site; Z86.73 Personal history of transient ischemic attack (TIA), and cerebral infarction without residual deficits; I25.2 Old myocardial infarction
CPT/HCPCS: 36415; 76001; 80048; 80053; 81003; 85025; 85027; 85610; 85730; 93005; 93010; A4216; C1713; C1768; G8978-GP-CL; G8979-GP-CJ; G8987-GO-CI; G8988-GO-CI; G8989-GO-CI; J0670; J1100; J1642; J1885; J1956; J2270; J2405; J2704; J3010; J3370; J3490

== ENCOUNTER 2018-07-10 09:23 | Outpatient (CLI) | payer MEDICARE ==
--- NOTE | 2018-07-10 11:12 | RAD ---
LUMBAR SPINE 2 VIEWS: Date: 07/10/18 HISTORY: Follow-up surgery. COMPARISON: None. CORRELATION: Lumbar spine myelogram dated 02/13/18. FINDINGS: Interval laminectomy defect at L4 and L5. Bilateral transpedicular screws at L4, L5, and S1. Disc pro sthesis at L4-L5 and L5-S1. There is 4.0 mm of anterolisthesis of L4 upon L5. There is 5.9 mm anterol isthesis of L5 upon S1. There is 2.8 mm of retrolisthesis of L3 upon L4. Atherosclerosis is identified. Stable osteophyte formation along the left aspect of the T12-L1 and L1 -L2 levels. IMPRESSION: Interval lumbar fusion changes as described above. POS: BRYON
== END 2018-07-10 09:24 | disposition home or self-care (01) ==
LOC: TBSIIMAG 09:23
PROVIDERS: ATTEND Neurological Surgery
DX: M54.16 Radiculopathy, lumbar region (principal); Z98.1 Arthrodesis status
CPT/HCPCS: 72100

== ENCOUNTER 2021-10-19 11:57 | Outpatient (CLI) | payer MEDICARE | END 2021-10-19 11:58 | disposition home or self-care (01) | LOC: BICCT 11:57 | PROVIDERS: ATTEND Internal Medicine | DX: G62.9 Polyneuropathy, unspecified (principal); R53.82 Chronic fatigue, unspecified; R63.4 Abnormal weight loss; K57.30 Diverticulosis of large intestine without perforation or abscess without bleeding; K80.20 Calculus of gallbladder without cholecystitis without obstruction; N20.0 Calculus of kidney; J43.9 Emphysema, unspecified; M47.816 Spondylosis without myelopathy or radiculopathy, lumbar region | CPT/HCPCS: 71250; 74177 ==

== ENCOUNTER 2022-02-06 18:56 | Inpatient (IN) | payer MEDICARE ==
[2022-02-06] MEDS ORDERED: Clindamycin/D5W 900 mg/50 ml Premix Bag ONE (19:19)
[2022-02-06] MEDS ORDERED: Dexamethasone 10 MG/ML VIAL ONE (19:19)
[2022-02-06 19:38] LABS: INR-International Normal Ratio 1.5; PTT 29.8 sec (22.9-36.1); Prothrombin Time 18.6 sec (12.0-14.7)
[2022-02-06 19:39] LABS: Hemoglobin 13.2 g/dL (14.0-18.0); Mean Corpuscular HGB CONC 33.2 g/dL (32.0-36.0); Mean Corpuscular Hemoglobin 31.1 pg (27.0-31.0); Mean Corpuscular Volume 93.4 fL (78.0-98.0); Red Blood Cell (RBC) Count 4.25 mill/uL (4.70-6.10)
[2022-02-06 19:54] LABS: Band 66 % (5-11); Burr Cells MODERATE= 6-15 cells (100X) (0-1/hpf); Large Platelets SLIGHT; Lymphocytes 7 % (21-51); MDiff Complete? YES; Mean Platelet Volume 10.5 fL (7.4-10.4); Metamyelocyte 4 % (0-0); Monocytes 1 % (0-10); Neutrophil 21 % (42-75); Platelet Count 412 thou/uL (130-400); Platelet Morphology Comment Appears Increased; RBC Distribution Width 22.8 % (11.5-14.5); Reactive Lymphocytes 1 % (0-10); Reflex for Review?? YES; White Blood Cell (WBC) Count 29.3 thou/uL (4.8-10.8)
[2022-02-06 20:09] LABS: CKMB 0.6 ng/mL (0-6.6)
[2022-02-06 20:28] LABS: Albumin 2.6 g/dL (3.4-4.8)
[2022-02-06 20:29] LABS: Chloride 103 mmol/L (98-107); Potassium 4.7 mmol/L (3.5-5.1); Sodium 134 mmol/L (136-145)
[2022-02-06 20:30] LABS: Calcium 8.7 mg/dL (7.8-10.44); Glucose 133 mg/dL (83-110)
[2022-02-06 20:31] LABS: Protein, Total 5.6 g/dL (5.8-8.1)
[2022-02-06 20:32] LABS: Anion Gap 15 mmol/L (10-20); Carbon Dioxide 21 mmol/L (23-31)
[2022-02-06 20:33] LABS: Alkaline Phosphatase 66 U/L (40-110)
[2022-02-06 20:34] LABS: CRP (Inflammatory) 31.48 mg/dL (= or < 0.5); Calc. Creatinine Clearance 0 mL/min (70-130)
[2022-02-06 20:35] LABS: BUN (Urea Nitrogen) 45 mg/dL (8.4-25.7)
[2022-02-06 20:36] LABS: ALT (SGPT) 14 U/L (8-55); AST (SGOT) 16 U/L (5-34); CK (CPK) 29 U/L (30-200)
[2022-02-06 20:47] LABS: SARS-CoV-2 NAA Rapid Test Not Detected (NotDetected)
[2022-02-06 22:33] LABS: Lactic Acid 1.9 mmol/L (0.5-2.2)
[2022-02-06 22:41] LABS: Troponin I 0.087 ng/mL (< 0.028)
[2022-02-06] MEDS ORDERED: Acyclovir Sodium 780 MG in Sodium Chloride 0.9% 250 ML 250 ML IVPB SCH (23:00)
[2022-02-06] MEDS ORDERED: Ondansetron PF 4 MG/2 ML Vial IVP PRN (23:34)
[2022-02-06] MEDS ORDERED: Acetaminophen 650 MG Suppository PR PRN (23:34)
[2022-02-07] MEDS ORDERED: Meropenem 1 GM in Sodium Chloride 0.9% 100 ML IVPB SCH (01:00)
[2022-02-07 01:47] LABS: Troponin I 0.087 ng/mL (< 0.028)
[2022-02-07 02:01] LABS: ALT (SGPT) 15 U/L (8-55); AST (SGOT) 22 U/L (5-34); Albumin 2.5 g/dL (3.4-4.8); Alkaline Phosphatase 63 U/L (40-110); Anion Gap 14 mmol/L (10-20); BUN (Urea Nitrogen) 48 mg/dL (8.4-25.7); Calc. Creatinine Clearance 0 mL/min (70-130); Calcium 8.6 mg/dL (7.8-10.44); Carbon Dioxide 17 mmol/L (23-31); Chloride 106 mmol/L (98-107); Globulin 2.9 g/dL (2.4-3.5); Glucose 143 mg/dL (83-110); Potassium 4.4 mmol/L (3.5-5.1); Protein, Total 5.4 g/dL (5.8-8.1); Sodium 133 mmol/L (136-145)
[2022-02-07 02:16] VITALS: BMI 28.3
[2022-02-07] MEDS ORDERED: rOPINIRole HCl 0.5 MG TAB PO SCH (03:00)
[2022-02-07 03:10] LABS: Bacteria/HPF None Seen HPF (None Seen); Bilirubin Negative (Negative); Blood, Urine Trace (Negative); Clarity Clear (Clear); Glucose, Urine (Dipstick) 70 mg/dL (Negative); Ketone, Urine Negative (Negative); Leukocyte Negative Leu/uL (Negative); Nitrite Negative (Negative); Protein, Urine (Dipstick) 70 mg/dL (Neg-Trace); RBC/HPF 0-3 HPF (0-3); Squamous Epithelial None Seen HPF (0-3); Urobilinogen Normal mg/dL (Less than 2); WBC/HPF 0-3 HPF (0-3)
[2022-02-07 03:12] LABS: Specific Gravity, Urine 1.045 (1.002-1.036)
[2022-02-07 03:13] LABS: Urine Culture Reflex No No
[2022-02-07] MEDS: Vancomycin 1.5 GRAM/300 ML BAG 1.5 GM in Premix Bag 1 BAG IVPB SCH (03:32)
[2022-02-07 07:36] LABS: Hemoglobin 12.5 g/dL (14.0-18.0); Mean Corpuscular Hemoglobin 31.3 pg (27.0-31.0); Mean Corpuscular Volume 97.8 fL (78.0-98.0); Mean Platelet Volume 11.9 fL (7.4-10.4); Platelet Count 392 thou/uL (130-400); RBC Distribution Width 15.1 % (11.5-14.5); White Blood Cell (WBC) Count 38.8 thou/uL (4.8-10.8)
[2022-02-07 08:10] LABS: Band 55 % (5-11); Dohle Bodies SLIGHT; Large Platelets MODERATE; Lymphocytes 4 % (21-51); MDiff Complete? YES; Metamyelocyte 1 % (0-0); Monocytes 5 % (0-10); Neutrophil 34 % (42-75); Platelet Morphology Comment Appears Adequate; Reactive Lymphocytes 1 % (0-10); Toxic Granulation SLIGHT
[2022-02-07] MEDS: Heparin 5,000 UNITS/ML VIAL SC SCH ×3 (09:22→21:39)
[2022-02-07] MEDS: Meropenem 1 GM in Sodium Chloride 0.9% 100 ML IVPB SCH ×2 (11:08→21:38)
[2022-02-07] MEDS ORDERED: Acyclovir Sodium 780 MG in Sodium Chloride 0.9% 250 ML 250 ML IVPB SCH (12:00)
[2022-02-07] MEDS ORDERED: Dexamethasone 10 MG/ML VIAL SLOW IVP SCH (13:00)
[2022-02-07] MEDS: methylPREDNISolone Sod Succ 40 MG VIAL IVP SCH (18:17)
[2022-02-07] MEDS: Famotidine/PF 20 mg/2ml Vial SLOW IVP SCH (21:37)
[2022-02-08] MEDS: methylPREDNISolone Sod Succ 40 MG VIAL IVP SCH ×4 (00:54→22:06)
[2022-02-08 03:39] LABS: Hemoglobin 13.6 g/dL (14.0-18.0); Mean Corpuscular Hemoglobin 31.3 pg (27.0-31.0); Mean Corpuscular Volume 97.8 fL (78.0-98.0); Mean Platelet Volume 11.9 fL (7.4-10.4); Platelet Count 440 thou/uL (130-400); RBC Distribution Width 15.4 % (11.5-14.5); Red Blood Cell (RBC) Count 4.35 mill/uL (4.70-6.10); White Blood Cell (WBC) Count 51.7 thou/uL (4.8-10.8)
[2022-02-08 03:54] LABS: ALT (SGPT) 26 U/L (8-55); AST (SGOT) 32 U/L (5-34); Albumin 2.5 g/dL (3.4-4.8); Alkaline Phosphatase 73 U/L (40-110); Anion Gap 15 mmol/L (10-20); BUN (Urea Nitrogen) 74 mg/dL (8.4-25.7); Bilirubin, Total 1.5 mg/dL (0.2-1.2); Calc. Creatinine Clearance 43 mL/min (70-130); Calcium 8.6 mg/dL (7.8-10.44); Carbon Dioxide 20 mmol/L (23-31); Chloride 105 mmol/L (98-107); Globulin 3.3 g/dL (2.4-3.5); Glucose 165 mg/dL (83-110); Potassium 5.1 mmol/L (3.5-5.1); Protein, Total 5.8 g/dL (5.8-8.1); Sodium 135 mmol/L (136-145)
[2022-02-08 04:01] LABS: Band 36 % (5-11); Lymphocytes 3 % (21-51); MDiff Complete? YES; Monocytes 8 % (0-10); Neutrophil 53 % (42-75); Platelet Morphology Comment Appears Increased; RBC Morphology Normal
[2022-02-08] MEDS: Vancomycin 1.5 GRAM/300 ML BAG 1.5 GM in Premix Bag 1 BAG IVPB SCH (04:46)
[2022-02-08] MEDS: Loratadine 10 MG TAB PO SCH (09:36)
[2022-02-08] MEDS: Heparin 5,000 UNITS/ML VIAL SC SCH ×3 (09:36→22:06)
[2022-02-08] MEDS: Meropenem 1 GM in Sodium Chloride 0.9% 100 ML IVPB SCH ×2 (09:36→22:04)
[2022-02-08] MEDS: Digoxin 0.125 MG TAB PO SCH (09:36)
[2022-02-08] MEDS: Ciprofloxacin HCL/Dexameth Otic Drops 7.5 ml Bottle EA EAR SCH ×2 (11:55→21:55)
[2022-02-08] MEDS: Famotidine/PF 20 mg/2ml Vial SLOW IVP SCH (21:55)
[2022-02-08] MEDS ORDERED: rOPINIRole HCl 0.5 MG TAB PO SCH (22:45)
[2022-02-09 03:56] LABS: Vancomycin, Trough 13.2 ug/mL
[2022-02-09 03:57] LABS: ALT (SGPT) 27 U/L (8-55); AST (SGOT) 21 U/L (5-34); Albumin 2.3 g/dL (3.4-4.8); Alkaline Phosphatase 65 U/L (40-110); Anion Gap 14 mmol/L (10-20); BUN (Urea Nitrogen) 87 mg/dL (8.4-25.7); Bilirubin, Total 1.4 mg/dL (0.2-1.2); Calc. Creatinine Clearance 45 mL/min (70-130); Calcium 8.2 mg/dL (7.8-10.44); Carbon Dioxide 21 mmol/L (23-31); Chloride 104 mmol/L (98-107); Globulin 2.5 g/dL (2.4-3.5); Glucose 161 mg/dL (83-110); Potassium 5.5 mmol/L (3.5-5.1); Protein, Total 4.8 g/dL (5.8-8.1); Sodium 133 mmol/L (136-145)
[2022-02-09 04:17] LABS: Hemoglobin 12.5 g/dL (14.0-18.0); Mean Corpuscular HGB CONC 30.8 g/dL (32.0-36.0); Mean Corpuscular Hemoglobin 30.6 pg (27.0-31.0); Mean Corpuscular Volume 99.4 fL (78.0-98.0); Mean Platelet Volume 11.9 fL (7.4-10.4); Platelet Count 411 thou/uL (130-400); RBC Distribution Width 15.7 % (11.5-14.5); Red Blood Cell (RBC) Count 4.08 mill/uL (4.70-6.10)
[2022-02-09] MEDS: Vancomycin 1.5 GRAM/300 ML BAG 1.5 GM in Premix Bag 1 BAG IVPB SCH (05:14)
[2022-02-09 05:18] LABS: Band 19 % (5-11); Large Platelets MODERATE; Lymphocytes 3 % (21-51); MDiff Complete? YES; Metamyelocyte 2 % (0-0); Monocytes 1 % (0-10); Neutrophil 75 % (42-75)
[2022-02-09 07:27] VITALS: TEMP 97.1
[2022-02-09] MEDS: Ciprofloxacin HCL/Dexameth Otic Drops 7.5 ml Bottle EA EAR SCH (08:09)
[2022-02-09] MEDS: Heparin 5,000 UNITS/ML VIAL SC SCH (08:09)
[2022-02-09] MEDS: Loratadine 10 MG TAB PO SCH (08:09)
[2022-02-09] MEDS: Meropenem 1 GM in Sodium Chloride 0.9% 100 ML IVPB SCH (08:09)
[2022-02-09] MEDS: Digoxin 0.125 MG TAB PO SCH (08:09)
[2022-02-09] MEDS: methylPREDNISolone Sod Succ 40 MG VIAL IVP SCH (08:15)
[2022-02-09] MEDS ORDERED: rOPINIRole HCl 0.5 MG TAB PO SCH (21:00)
== END 2022-02-09 11:50 | disposition home or self-care (01) | DRG 872 ==
LOC: ERS 18:56 → IMCU/EMU 02-07 01:26
PROVIDERS: ADMIT Internal Medicine; ATTEND Family Medicine
DX: A41.9 Sepsis, unspecified organism (principal); N17.9 Acute kidney failure, unspecified; E87.2 Acidosis; I24.8 Other forms of acute ischemic heart disease; L03.211 Cellulitis of face; Z20.822 Contact with and (suspected) exposure to COVID-19; I25.10 Atherosclerotic heart disease of native coronary artery without angina pectoris; I50.9 Heart failure, unspecified; J01.91 Acute recurrent sinusitis, unspecified; H60.93 Unspecified otitis externa, bilateral; Z79.82 Long term (current) use of aspirin; Z79.01 Long term (current) use of anticoagulants; Z79.899 Other long term (current) drug therapy; Z88.0 Allergy status to penicillin; Z88.5 Allergy status to narcotic agent; Z88.8 Allergy status to other drugs, medicaments and biological substances; Z95.0 Presence of cardiac pacemaker; Z95.5 Presence of coronary angioplasty implant and graft; Z87.891 Personal history of nicotine dependence
CPT/HCPCS: 36415; 70450; 70487; 71045; 80053; 80202; 81001; 82550; 82553; 83605; 83880; 84484; 85025; 85060; 85610; 85730; 86140; 87040; 87081; 87149; 93005; 94760; 96365; 96367; 96375; J0133; J1100; J1644; J2185; J2920; J3370; J3490; J7050; S0028; U0002

== ENCOUNTER 2022-02-14 10:08 | Inpatient (IN) | payer MEDICARE ==
[2022-02-14 11:16] LABS: Hemoglobin 14.1 g/dL (14.0-18.0); Mean Corpuscular HGB CONC 31.7 g/dL (32.0-36.0); Mean Corpuscular Hemoglobin 30.7 pg (27.0-31.0); Mean Platelet Volume 11.9 fL (7.4-10.4); Platelet Count 430 thou/uL (130-400); RBC Distribution Width 16.8 % (11.5-14.5); White Blood Cell (WBC) Count 23.6 thou/uL (4.8-10.8)
[2022-02-14 11:18] LABS: ALT (SGPT) 19 U/L (8-55); AST (SGOT) 22 U/L (5-34); Albumin 2.6 g/dL (3.4-4.8); Alkaline Phosphatase 59 U/L (40-110); Anion Gap 10 mmol/L (10-20); BUN (Urea Nitrogen) 26 mg/dL (8.4-25.7); Bilirubin, Total 1.5 mg/dL (0.2-1.2); Calc. Creatinine Clearance 0 mL/min (70-130); Calcium 8.1 mg/dL (7.8-10.44); Carbon Dioxide 26 mmol/L (23-31); Chloride 102 mmol/L (98-107); Glucose 114 mg/dL (83-110); Potassium 4.7 mmol/L (3.5-5.1); Protein, Total 5.6 g/dL (5.8-8.1); Sodium 133 mmol/L (136-145)
[2022-02-14 11:46] LABS: Band 12 % (5-11); Large Platelets MODERATE; Lymphocytes 1 % (21-51); MDiff Complete? YES; Metamyelocyte 2 % (0-0); Monocytes 5 % (0-10); Myelocyte 1 % (0-0); Neutrophil 79 % (42-75); Platelet Morphology Comment Appears Increased; Polychromasia MODERATE = 3-4 cells (100X) (0-2/hpf)
[2022-02-14 14:27] VITALS: BMI 23.8
[2022-02-14] MEDS ORDERED: Calcium Carbonate 500 MG ChewTAB PO PRN (14:27)
[2022-02-14] MEDS ORDERED: Acetaminophen 325 MG TAB PO PRN (14:27)
[2022-02-14] MEDS ORDERED: Iopamidol-370 76% 500 ML 1 ML ONE (15:20)
[2022-02-14] MEDS: Clindamycin/D5W 600 MG in Premix Bag 1 BAG IVPB SCH ×2 (15:30→23:46)
[2022-02-14] MEDS: rOPINIRole HCl 0.5 MG TAB PO SCH (18:07)
[2022-02-14] MEDS: Sacubitril 49 MG/Valsartan 51 MG TABLET PO SCH (20:47)
[2022-02-14] MEDS: DorzolamidE/Timolol 2%/0.5% Ophth Soln 10 ml Bottle L EYE SCH (20:50)
[2022-02-14 21:14] LABS: SARS-CoV-2 PCR by NAA Not Detected (NotDetected)
[2022-02-15] MEDS: Clindamycin/D5W 600 MG in Premix Bag 1 BAG IVPB SCH ×3 (06:24→23:15)
[2022-02-15 07:19] LABS: Hemoglobin 11.9 g/dL (14.0-18.0); Mean Corpuscular Hemoglobin 30.2 pg (27.0-31.0); Mean Corpuscular Volume 97.4 fL (78.0-98.0); Mean Platelet Volume 11.7 fL (7.4-10.4); Platelet Count 365 thou/uL (130-400); RBC Distribution Width 16.5 % (11.5-14.5); Red Blood Cell (RBC) Count 3.93 mill/uL (4.70-6.10); White Blood Cell (WBC) Count 16.6 thou/uL (4.8-10.8)
[2022-02-15 07:28] LABS: Anion Gap 10 mmol/L (10-20); BUN (Urea Nitrogen) 24 mg/dL (8.4-25.7); Calc. Creatinine Clearance 46 mL/min (70-130); Calcium 8.1 mg/dL (7.8-10.44); Carbon Dioxide 28 mmol/L (23-31); Chloride 104 mmol/L (98-107); Glucose 87 mg/dL (83-110); Potassium 4.6 mmol/L (3.5-5.1); Sodium 137 mmol/L (136-145)
[2022-02-15] MEDS ORDERED: predniSONE 5 MG TAB PO SCH (08:00)
[2022-02-15] MEDS: Fish Oil 1,000 MG CAP PO SCH (08:47)
[2022-02-15] MEDS: Empagliflozin 25 MG TAB PO SCH (08:47)
[2022-02-15] MEDS: Saccharomyces boulardii 250 MG CAP PO SCH (08:47)
[2022-02-15] MEDS: DorzolamidE/Timolol 2%/0.5% Ophth Soln 10 ml Bottle L EYE SCH ×2 (08:47→20:47)
[2022-02-15] MEDS: Enoxaparin Sodium 40 MG/0.4 ML SYRINGE SC SCH (08:47)
[2022-02-15] MEDS: Sacubitril 49 MG/Valsartan 51 MG TABLET PO SCH ×2 (08:47→20:47)
[2022-02-15] MEDS: Digoxin 0.125 MG TAB PO SCH (08:48)
[2022-02-15] MEDS ORDERED: Bempedoic Acid/Ezetimibe [Nexlizet 180-10 Mg Tablet] PO SCH (09:00)
[2022-02-15 09:39] LABS: #Basophils 0.1 thou/uL (0.0-0.2); #Eosinphils 0.2 thou/uL (0.0-0.7); #Lymphocytes 1.9 thou/uL (1.20-3.40); #Monocytes 0.7 thou/uL (0.11-0.59); #Neutrophils 13.7 thou/uL (1.40-6.50); %Basophils 0.6 % (0.0-1.0); %Eosinophils 1.5 % (0.0-10.0); %Lymphocytes 11.2 % (21.0-51.0); %Monocytes 4.4 % (0.0-10.0); %Neutrophils 82.3 % (42.0-75.0); Band 12 % (5-11); Eosinophils 2 % (0-10); Large Platelets MODERATE; Lymphocytes 14 % (21-51); MDiff Complete? YES; Monocytes 3 % (0-10); Myelocyte 1 % (0-0); Neutrophil 68 % (42-75); Platelet Morphology Comment Appears Adequate; Polychromasia SLIGHT = 2-3 cells (100X) (0-2/hpf)
[2022-02-15] MEDS: Famotidine 20 MG TAB PO SCH (10:56)
[2022-02-15] MEDS: rOPINIRole HCl 0.5 MG TAB PO SCH (18:25)
[2022-02-16] MEDS: Clindamycin/D5W 600 MG in Premix Bag 1 BAG IVPB SCH ×3 (06:38→23:29)
[2022-02-16 07:32] LABS: #Basophils 0.1 thou/uL (0.0-0.2); #Eosinphils 0.2 thou/uL (0.0-0.7); #Lymphocytes 1.6 thou/uL (1.20-3.40); #Monocytes 0.6 thou/uL (0.11-0.59); #Neutrophils 11.1 thou/uL (1.40-6.50); %Basophils 0.6 % (0.0-1.0); %Eosinophils 1.4 % (0.0-10.0); %Lymphocytes 11.7 % (21.0-51.0); %Monocytes 4.6 % (0.0-10.0); %Neutrophils 81.7 % (42.0-75.0); Hemoglobin 11.6 g/dL (14.0-18.0); Mean Corpuscular HGB CONC 31.7 g/dL (32.0-36.0); Mean Corpuscular Hemoglobin 30.9 pg (27.0-31.0); Mean Corpuscular Volume 97.4 fL (78.0-98.0); Mean Platelet Volume 11.5 fL (7.4-10.4); Platelet Count 355 thou/uL (130-400); RBC Distribution Width 16.3 % (11.5-14.5); Red Blood Cell (RBC) Count 3.77 mill/uL (4.70-6.10); White Blood Cell (WBC) Count 13.6 thou/uL (4.8-10.8)
[2022-02-16] MEDS: Empagliflozin 25 MG TAB PO SCH (09:22)
[2022-02-16] MEDS: Saccharomyces boulardii 250 MG CAP PO SCH (09:23)
[2022-02-16] MEDS: Fish Oil 1,000 MG CAP PO SCH (09:25)
[2022-02-16] MEDS: Digoxin 0.125 MG TAB PO SCH (09:25)
[2022-02-16] MEDS: predniSONE 5 MG TAB PO SCH (09:25)
[2022-02-16] MEDS: Enoxaparin Sodium 40 MG/0.4 ML SYRINGE SC SCH (09:25)
[2022-02-16] MEDS: Sacubitril 49 MG/Valsartan 51 MG TABLET PO SCH ×2 (09:26→19:53)
[2022-02-16] MEDS: DorzolamidE/Timolol 2%/0.5% Ophth Soln 10 ml Bottle L EYE SCH ×2 (09:26→19:53)
[2022-02-16] MEDS: Famotidine 20 MG TAB PO SCH (10:52)
[2022-02-16] MEDS ORDERED: Loratadine 10 MG TAB PO SCH (11:45)
[2022-02-16] MEDS: rOPINIRole HCl 0.5 MG TAB PO SCH (17:40)
[2022-02-17] MEDS: Clindamycin/D5W 600 MG in Premix Bag 1 BAG IVPB SCH ×3 (06:07→22:40)
[2022-02-17] MEDS: predniSONE 5 MG TAB PO SCH (09:10)
[2022-02-17] MEDS: Digoxin 0.125 MG TAB PO SCH (09:11)
[2022-02-17] MEDS: Loratadine 10 MG TAB PO SCH (09:12)
[2022-02-17] MEDS: Enoxaparin Sodium 40 MG/0.4 ML SYRINGE SC SCH (09:12)
[2022-02-17] MEDS: DorzolamidE/Timolol 2%/0.5% Ophth Soln 10 ml Bottle L EYE SCH ×2 (09:12→20:50)
[2022-02-17] MEDS: Empagliflozin 25 MG TAB PO SCH (09:12)
[2022-02-17] MEDS: Fish Oil 1,000 MG CAP PO SCH (09:12)
[2022-02-17] MEDS: Saccharomyces boulardii 250 MG CAP PO SCH (09:13)
[2022-02-17] MEDS: Sacubitril 49 MG/Valsartan 51 MG TABLET PO SCH ×2 (09:13→20:50)
[2022-02-17] MEDS: Famotidine 20 MG TAB PO SCH (12:15)
[2022-02-17] MEDS: rOPINIRole HCl 0.5 MG TAB PO SCH (18:30)
[2022-02-17] MEDS ORDERED: Mometasone Furoate 60 PUFF 220MCG INH SCH (18:30)
[2022-02-17] MEDS ORDERED: Mometasone Furoate 30 PUFF 220 MCG INH SCH (19:30)
[2022-02-18] MEDS: Clindamycin/D5W 600 MG in Premix Bag 1 BAG IVPB SCH ×3 (05:34→22:19)
[2022-02-18 07:04] LABS: Hemoglobin 11.7 g/dL (14.0-18.0); Mean Corpuscular HGB CONC 32.1 g/dL (32.0-36.0); Mean Corpuscular Hemoglobin 31.3 pg (27.0-31.0); Mean Corpuscular Volume 97.4 fL (78.0-98.0); RBC Distribution Width 16.3 % (11.5-14.5); Red Blood Cell (RBC) Count 3.72 mill/uL (4.70-6.10)
[2022-02-18 08:43] LABS: #Basophils 0.1 thou/uL (0.0-0.2); #Eosinphils 0.2 thou/uL (0.0-0.7); #Lymphocytes 1.5 thou/uL (1.20-3.40); #Monocytes 0.7 thou/uL (0.11-0.59); #Neutrophils 8.4 thou/uL (1.40-6.50); %Basophils 1.1 % (0.0-1.0); %Eosinophils 1.8 % (0.0-10.0); %Lymphocytes 13.4 % (21.0-51.0); %Monocytes 6.2 % (0.0-10.0); %Neutrophils 77.5 % (42.0-75.0); Hypochromia SLIGHT = 6-15 cells (100X) (0-5/hpf); Large Platelets MODERATE; MDiff Complete? YES; Mean Platelet Volume 11.6 fL (7.4-10.4); Platelet Count 378 thou/uL (130-400); Platelet Morphology Comment Appears Adequate; Polychromasia SLIGHT = 2-3 cells (100X) (0-2/hpf); White Blood Cell (WBC) Count 10.9 thou/uL (4.8-10.8)
[2022-02-18] MEDS ORDERED: Aspirin 81 mg Enteric Coated Tablet PO SCH (09:00)
[2022-02-18] MEDS ORDERED: Multivitamin W/ Minerals 1 TAB PO SCH (09:00)
[2022-02-18] MEDS: Saccharomyces boulardii 250 MG CAP PO SCH (10:32)
[2022-02-18] MEDS: Loratadine 10 MG TAB PO SCH (10:32)
[2022-02-18] MEDS: Digoxin 0.125 MG TAB PO SCH (10:32)
[2022-02-18] MEDS: Fish Oil 1,000 MG CAP PO SCH (10:32)
[2022-02-18] MEDS: predniSONE 5 MG TAB PO SCH (10:32)
[2022-02-18] MEDS: Enoxaparin Sodium 40 MG/0.4 ML SYRINGE SC SCH (10:33)
[2022-02-18] MEDS: DorzolamidE/Timolol 2%/0.5% Ophth Soln 10 ml Bottle L EYE SCH ×2 (10:33→20:00)
[2022-02-18] MEDS: Sacubitril 49 MG/Valsartan 51 MG TABLET PO SCH ×2 (10:33→20:00)
[2022-02-18] MEDS: Empagliflozin 25 MG TAB PO SCH (10:35)
[2022-02-18] MEDS: Famotidine 20 MG TAB PO SCH (12:22)
[2022-02-18] MEDS: rOPINIRole HCl 0.5 MG TAB PO SCH (18:29)
[2022-02-18] MEDS ORDERED: Mometasone Furoate 30 PUFF 220 MCG INH SCH (18:30)
[2022-02-19] MEDS: Clindamycin/D5W 600 MG in Premix Bag 1 BAG IVPB SCH (06:15)
[2022-02-19 08:38] VITALS: BP 111/69; TEMP 97.9
== END 2022-02-19 10:05 | disposition home or self-care (01) | DRG 603 ==
LOC: ERS 10:08 → T4-B 13:23
PROVIDERS: ADMIT Family Medicine; ATTEND Family Medicine
DX: L03.211 Cellulitis of face (principal); I50.22 Chronic systolic (congestive) heart failure; B02.8 Zoster with other complications; N17.9 Acute kidney failure, unspecified; I11.0 Hypertensive heart disease with heart failure; I25.10 Atherosclerotic heart disease of native coronary artery without angina pectoris; H40.9 Unspecified glaucoma; Z20.822 Contact with and (suspected) exposure to COVID-19; H60.93 Unspecified otitis externa, bilateral; L03.213 Periorbital cellulitis; L23.9 Allergic contact dermatitis, unspecified cause; I25.2 Old myocardial infarction; Z95.0 Presence of cardiac pacemaker; Z87.891 Personal history of nicotine dependence; Z88.0 Allergy status to penicillin; Z88.5 Allergy status to narcotic agent; Z88.8 Allergy status to other drugs, medicaments and biological substances; Z79.52 Long term (current) use of systemic steroids; Z79.899 Other long term (current) drug therapy; Z79.82 Long term (current) use of aspirin; Z79.01 Long term (current) use of anticoagulants
CPT/HCPCS: 36415; 36416; 70487; 80048; 80053; 83605; 85025; 85652; 87070; 87076; 87205; J1650; J3490; J3535; J7512; Q9967; U0003; U0005

== ENCOUNTER 2022-10-26 12:41 | Outpatient (CLI) | payer MEDICARE | END 2022-10-26 12:42 | disposition home or self-care (01) | LOC: BICCT 12:41 | PROVIDERS: ATTEND Internal Medicine | DX: R06.02 Shortness of breath (principal); R63.4 Abnormal weight loss; R05.3 Chronic cough; R19.4 Change in bowel habit; J90 Pleural effusion, not elsewhere classified; R59.0 Localized enlarged lymph nodes; I51.7 Cardiomegaly; K57.30 Diverticulosis of large intestine without perforation or abscess without bleeding; K80.20 Calculus of gallbladder without cholecystitis without obstruction; N20.0 Calculus of kidney; N28.9 Disorder of kidney and ureter, unspecified | CPT/HCPCS: 71250; 74177 ==

== ENCOUNTER 2022-11-05 12:29 | Outpatient (CLI) | payer MEDICARE ==
[~2022-11-05 12:29] MED LIST changes: +Iopamidol-370 76% 500 ML 1 ML ONE; -Prevnar 13-Val Conj/PF 0.5 ML SYRINGE IM ONE
== END 2022-11-05 12:30 | disposition home or self-care (01) ==
LOC: BICCT 12:29
PROVIDERS: ATTEND Internal Medicine Gastroenterology
DX: K22.2 Esophageal obstruction (principal); D50.9 Iron deficiency anemia, unspecified; R63.0 Anorexia; R63.4 Abnormal weight loss; R93.5 Abnormal findings on diagnostic imaging of other abdominal regions, including retroperitoneum; J90 Pleural effusion, not elsewhere classified; K80.20 Calculus of gallbladder without cholecystitis without obstruction; N20.0 Calculus of kidney; K57.30 Diverticulosis of large intestine without perforation or abscess without bleeding; I70.90 Unspecified atherosclerosis
CPT/HCPCS: 71260; 74177; 82565; Q9967

== ENCOUNTER 2023-03-11 05:57 | Day surgery (SDC) | payer MEDICARE ==
[2023-03-08 15:45] VITALS: BMI 22.1
[2023-03-11] MEDS ORDERED: PROPOFOL 200 MG/20 ML VIAL ONE (07:44)
[2023-03-11] MEDS ORDERED: Lidocaine 1% PF 5 ML VIAL ONE (07:44)
== END 2023-03-11 09:08 | disposition home or self-care (01) ==
LOC: SDC 05:57
PROVIDERS: ATTEND Internal Medicine Gastroenterology
PROC: 0DB68ZX Excision of Stomach, Via Natural or Artificial Opening Endoscopic, Diagnostic (ICD-10-PCS; principal; 2023-03-11)
PROC: 0D758ZZ Dilation of Esophagus, Via Natural or Artificial Opening Endoscopic (ICD-10-PCS; 2023-03-11)
PROC: 0DJD8ZZ Inspection of Lower Intestinal Tract, Via Natural or Artificial Opening Endoscopic (ICD-10-PCS; 2023-03-11)
DX: K22.2 Esophageal obstruction (principal); K29.50 Unspecified chronic gastritis without bleeding; K57.30 Diverticulosis of large intestine without perforation or abscess without bleeding; K44.9 Diaphragmatic hernia without obstruction or gangrene; D50.9 Iron deficiency anemia, unspecified; K31.89 Other diseases of stomach and duodenum; K64.4 Residual hemorrhoidal skin tags; K64.8 Other hemorrhoids; K56.609 Unspecified intestinal obstruction, unspecified as to partial versus complete obstruction; K21.9 Gastro-esophageal reflux disease without esophagitis; I50.9 Heart failure, unspecified; I25.10 Atherosclerotic heart disease of native coronary artery without angina pectoris; E78.00 Pure hypercholesterolemia, unspecified; R63.4 Abnormal weight loss; Z87.891 Personal history of nicotine dependence; Z86.010 Personal history of colon polyps; Z79.899 Other long term (current) drug therapy; Z86.73 Personal history of transient ischemic attack (TIA), and cerebral infarction without residual deficits; Z90.49 Acquired absence of other specified parts of digestive tract; Z95.810 Presence of automatic (implantable) cardiac defibrillator; Z95.5 Presence of coronary angioplasty implant and graft; Z88.0 Allergy status to penicillin; Z88.8 Allergy status to other drugs, medicaments and biological substances; Z88.1 Allergy status to other antibiotic agents
CPT/HCPCS: 88305; J2704

== ENCOUNTER 2023-08-24 12:37 | Emergency (ER) | payer MEDICARE, OTHER ==
[2023-08-24 13:51] LABS: Hematocrit 40.3 % (42.0-52.0); Hemoglobin 13.2 g/dL (14.0-18.0); Manual Diff?? YES; Mean Corpuscular HGB CONC 32.8 g/dL (32.0-36.0); Mean Corpuscular Hemoglobin 31.6 pg (27.0-31.0); Mean Corpuscular Volume 96.4 fl (78.0-98.0); Platelet Count 319 10x3/uL (130-400); RBC Distribution Width 17.2 % (11.5-14.5); Red Blood Cell (RBC) Count 4.18 mill/uL (4.70-6.10); White Blood Cell (WBC) Count 8.4 10x3/uL (4.8-10.8)
[2023-08-24 13:54] LABS: Delete Auto Diff?? YES
[2023-08-24 14:15] LABS: ALT (SGPT) 12 U/L (8-55); AST (SGOT) 23 U/L (5-34); Albumin 4.1 g/dL (3.4-4.8); Alkaline Phosphatase 65 U/L (40-110); Anion Gap 16 mmol/L (10-20); BUN (Urea Nitrogen) 23 mg/dL (8.4-25.7); Bilirubin, Total 2.3 mg/dL (0.2-1.2); Calc. Creatinine Clearance 0 mL/min (70-130); Calcium 9.5 mg/dL (7.8-10.44); Carbon Dioxide 24 mmol/L (23-31); Chloride 103 mmol/L (98-107); Estimated GFR 41; Globulin 3.1 g/dL (2.4-3.5); Glucose 94 mg/dL (83-110); Lipase 11 U/L (8-78); Potassium 4.3 mmol/L (3.5-5.1); Protein, Total 7.2 g/dL (5.8-8.1); Sodium 139 mmol/L (136-145)
[2023-08-24 14:26] LABS: Anisocytosis SLIGHT = 6-15 cells HPF (0-5); Band 9 % (5-11); Burr Cells SLIGHT = 2-5 cells HPF (0-1); CellaVision Operator ID LAB.KB; Eosinophils 2 % (0-10); Lymphocytes 11 % (21-51); Monocytes 5 % (0-10); Neutrophil 73 % (42-75); Ovalocytes SLIGHT = 2-5 cells HPF (0-1); Platelet Adequacy Comment Platelets Normal; Polychromasia SLIGHT = 2-3 cells HPF (0-2); Total Cell Count 100
[2023-08-24] MEDS ORDERED: Aspirin Chewable 81 MG TAB ONE (15:06)
[2023-08-24] MEDS ORDERED: cefTRIAXone (ROCEPHIN) 1 GM VIAL ONE (15:07)
[2023-08-24] MEDS ORDERED: Sodium Chloride 0.9% 100 ML ONE (15:07)
== END 2023-08-24 16:34 | disposition short-term general hospital (02) ==
LOC: ERS 12:37
DX: I21.4 Non-ST elevation (NSTEMI) myocardial infarction (principal); R06.00 Dyspnea, unspecified; Z87.891 Personal history of nicotine dependence; Z86.73 Personal history of transient ischemic attack (TIA), and cerebral infarction without residual deficits; Z79.82 Long term (current) use of aspirin
CPT/HCPCS: 71045; 80053; 83690; 83880; 84484; 85025; 93005; 96365; J0696; J1650; J3490

== ENCOUNTER 2024-02-20 10:42 | Outpatient (CLI) | payer MEDICARE | END 2024-02-20 10:43 | disposition home or self-care (01) | LOC: BICRAD 10:42 | PROVIDERS: ATTEND Internal Medicine | DX: J18.9 Pneumonia, unspecified organism (principal) | CPT/HCPCS: 71046 ==

== ENCOUNTER 2024-04-08 10:24 | Outpatient (CLI) | payer MEDICARE | END 2024-04-08 10:25 | disposition home or self-care (01) | LOC: BICRAD 10:24 | PROVIDERS: ATTEND Physician Assistant Medical | DX: I50.42 Chronic combined systolic (congestive) and diastolic (congestive) heart failure (principal); I51.7 Cardiomegaly | CPT/HCPCS: 71046 ==

== ENCOUNTER 2024-07-06 10:00 | Inpatient (IN) | payer MEDICARE ==
[2024-07-06] MEDS ORDERED: Ondansetron PF 4 MG/2 ML Vial IVP PRN (10:08)
[2024-07-06] MEDS ORDERED: Acetaminophen 325 MG TAB PO PRN (10:08)
[2024-07-06] MEDS ORDERED: Senokot S 8.6-50 MG TAB PO PRN (10:08)
[2024-07-06] MEDS ORDERED: Guaifenesin DM 100-10/5 ML UDCUP PO PRN (10:08)
[2024-07-06 10:47] VITALS: BMI 24.0
[2024-07-06] MEDS: Amiodarone 200 MG TAB PO SCH ×2 (11:36→20:18)
[2024-07-06 11:46] LABS: ALT (SGPT) 120 U/L (8-55); AST (SGOT) 262 U/L (5-34); Albumin 3.2 g/dL (3.4-4.8); Alkaline Phosphatase 85 U/L (40-110); Anion Gap 15 mmol/L (10-20); BUN (Urea Nitrogen) 50 mg/dL (8.4-25.7); Bilirubin, Total 2.6 mg/dL (0.2-1.2); Calc. Creatinine Clearance 27 mL/min (70-130); Calcium 9.3 mg/dL (7.8-10.44); Carbon Dioxide 22 mmol/L (23-31); Chloride 108 mmol/L (98-107); Estimated GFR 31; Glucose 101 mg/dL (83-110); Magnesium 2.4 mg/dL (1.6-2.6); Potassium 4.4 mmol/L (3.5-5.1); Protein, Total 6.2 g/dL (5.8-8.1); Sodium 141 mmol/L (136-145)
[2024-07-06 11:48] LABS: Band 10 % (5-11); Burr Cells SLIGHT = 2-5 cells HPF (0-1); Elliptocytes SLIGHT = 2-5 cells HPF (0-1); Giant Platelets 3.9 % (0-5); Large Platelets 38.8 % (0-5); Lymphocytes 5 % (21-51); Monocytes 4 % (0-10); Neutrophil 73 % (42-75); Nucleated RBC (Manual Ct) 1 % (0); Platelet Adequacy Comment Platelets Normal; Polychromasia SLIGHT = 2-3 cells HPF (0-2); Reactive Lymphocytes 3 % (0-10)
[2024-07-06 11:49] LABS: Hematocrit 44.4 % (42.0-52.0); Hemoglobin 14.2 g/dL (14.0-18.0); Mean Corpuscular Hemoglobin 30.7 pg (27.0-31.0); Mean Corpuscular Volume 95.9 fL (78.0-98.0); Platelet Count 333 10x3/uL (130-400); RBC Distribution Width 19.4 % (11.5-14.5); Red Blood Cell (RBC) Count 4.63 mill/uL (4.70-6.10)
[2024-07-06] MEDS: cefTRIAXone\\ROCEPHIN 1 GM in Sodium Chloride 0.9% 100 ML IVPB SCH (12:08)
[2024-07-06] MEDS: Milrinone Lactate/D5W 20 MG in Premix 1 BAG IV SCH (12:38)
[2024-07-06] MEDS: Ranolazine ER 500 MG TAB PO SCH (20:18)
[2024-07-06] MEDS ORDERED: Famotidine/PF 20 mg/2ml Vial SLOW IVP SCH (21:00)
[2024-07-06] MEDS: rOPINIRole HCl 0.5 MG TAB PO SCH (21:54)
[2024-07-07 04:16] LABS: Hematocrit 39.2 % (42.0-52.0); Mean Corpuscular HGB CONC 33.2 g/dL (32.0-36.0); Mean Corpuscular Hemoglobin 30.4 pg (27.0-31.0); Mean Corpuscular Volume 91.8 fL (78.0-98.0); Platelet Count 324 10x3/uL (130-400); RBC Distribution Width 18.6 % (11.5-14.5); Red Blood Cell (RBC) Count 4.27 mill/uL (4.70-6.10)
[2024-07-07 04:29] LABS: ALT (SGPT) 118 U/L (8-55); AST (SGOT) 212 U/L (5-34); Albumin 2.6 g/dL (3.4-4.8); Alkaline Phosphatase 85 U/L (40-110); Anion Gap 14 mmol/L (10-20); BUN (Urea Nitrogen) 58 mg/dL (8.4-25.7); Bilirubin, Total 1.6 mg/dL (0.2-1.2); Calc. Creatinine Clearance 29 mL/min (70-130); Calcium 8.6 mg/dL (7.8-10.44); Carbon Dioxide 17 mmol/L (23-31); Chloride 110 mmol/L (98-107); Estimated GFR 33; Globulin 2.8 g/dL (2.4-3.5); Glucose 78 mg/dL (83-110); Magnesium 2.2 mg/dL (1.6-2.6); Potassium 4.4 mmol/L (3.5-5.1); Protein, Total 5.4 g/dL (5.8-8.1); Sodium 137 mmol/L (136-145)
[2024-07-07 05:01] LABS: Anisocytosis SLIGHT = 6-15 cells HPF (0-5); Band 4 % (5-11); Burr Cells MODERATE= 6-15 cells HPF (0-1); Elliptocytes SLIGHT = 2-5 cells HPF (0-1); Eosinophils 1 % (0-10); Lymphocytes 2 % (21-51); Metamyelocyte 1 % (0-0); Monocytes 3 % (0-10); Neutrophil 88 % (42-75); Nucleated RBC (Manual Ct) 1 % (0); Platelet Adequacy Comment Platelets Normal; Poikilocytosis SLIGHT = 6-15 cells HPF (0-5); Polychromasia SLIGHT = 2-3 cells HPF (0-2)
[2024-07-07] MEDS ORDERED: rOPINIRole HCl 0.5 MG TAB PO SCH (09:00)
[2024-07-07] MEDS: Clopidogrel Bisulfate 75 MG TAB PO SCH (09:33)
[2024-07-07] MEDS: Pantoprazole DR 40 MG TAB PO SCH (09:33)
[2024-07-07] MEDS: Gabapentin 100 MG CAP PO SCH (09:33)
[2024-07-07] MEDS: Enoxaparin 40 MG (0.4 mL) SYRINGE SC SCH (09:33)
[2024-07-07] MEDS: Ezetimibe 10 MG TAB PO SCH (09:33)
[2024-07-07] MEDS: Dapagliflozin Propanediol 10 MG TAB PO SCH (09:33)
[2024-07-07] MEDS: Perflutren Lipid Microspheres 1.1 MG/ML VIAL ONE (09:43)
[2024-07-07] MEDS: Furosemide 40 MG (4 mL) VIAL SLOW IVP SCH (11:49)
[2024-07-07] MEDS: Magnesium 2 GM/50 ML(in water) 2 GM in Premix 1 BAG IVPB SCH (11:51)
[2024-07-07] MEDS: Spironolactone 25 MG TAB PO SCH (11:51)
[2024-07-07] MEDS: FLU (Fluad Triv) TS24-25 (65UP)/MF59C/PF 45 MCG/0.5 ML Syringe IM ONE (11:52)
[2024-07-07] MEDS: Doxycycline 100 MG CAP PO SCH ×2 (15:57→20:12)
[2024-07-08 06:17] LABS: ALT (SGPT) 92 U/L (8-55); AST (SGOT) 101 U/L (5-34); Albumin 2.5 g/dL (3.4-4.8); Alkaline Phosphatase 64 U/L (40-110); Anion Gap 12 mmol/L (10-20); BUN (Urea Nitrogen) 60 mg/dL (8.4-25.7); Bilirubin, Total 1.3 mg/dL (0.2-1.2); Calc. Creatinine Clearance 31 mL/min (70-130); Calcium 8.4 mg/dL (7.8-10.44); Carbon Dioxide 23 mmol/L (23-31); Chloride 105 mmol/L (98-107); Estimated GFR 34; Globulin 2.5 g/dL (2.4-3.5); Glucose 91 mg/dL (83-110); Magnesium 2.3 mg/dL (1.6-2.6); Potassium 3.6 mmol/L (3.5-5.1); Sodium 136 mmol/L (136-145)
[2024-07-08 06:19] LABS: Hematocrit 36.1 % (42.0-52.0); Hemoglobin 12.2 g/dL (14.0-18.0); Mean Corpuscular HGB CONC 33.8 g/dL (32.0-36.0); Mean Corpuscular Hemoglobin 30.6 pg (27.0-31.0); Mean Corpuscular Volume 90.5 fL (78.0-98.0); Mean Platelet Volume 13.8 fL (7.4-10.4); Platelet Count 298 10x3/uL (130-400); RBC Distribution Width 18.3 % (11.5-14.5); Red Blood Cell (RBC) Count 3.99 mill/uL (4.70-6.10)
[2024-07-08 06:45] LABS: Anisocytosis SLIGHT = 6-15 cells HPF (0-5); Band 7 % (5-11); Burr Cells SLIGHT = 2-5 cells HPF (0-1); Elliptocytes SLIGHT = 2-5 cells HPF (0-1); Eosinophils 3 % (0-10); Large Platelets 9.9 % (0-5); Lymphocytes 15 % (21-51); Microcytosis SLIGHT = 6-15 cells HPF (0-5); Monocytes 9 % (0-10); Neutrophil 61 % (42-75); Platelet Adequacy Comment Platelets Normal; Poikilocytosis SLIGHT = 6-15 cells HPF (0-5); Polychromasia SLIGHT = 2-3 cells HPF (0-2); Reactive Lymphocytes 2 % (0-10); Target Cells SLIGHT = 2-5 cells HPF (0-1)
[2024-07-08] MEDS: Spironolactone 25 MG TAB PO SCH (08:12)
[2024-07-08] MEDS: Enoxaparin 30 MG (0.3 mL) SYRINGE SC SCH (08:13)
[2024-07-08] MEDS: Magnesium Oxide 400 MG TAB PO SCH (09:56)
[2024-07-08] MEDS: Potassium Chloride 20 MEQ TAB PO SCH (09:56)
[2024-07-08] MEDS: Torsemide 20 MG TAB PO SCH (09:56)
[2024-07-08] MEDS: Potassium Chloride 10 MEQ TAB PO SCH (20:28)
[2024-07-09 04:48] LABS: Hematocrit 38.3 % (42.0-52.0); Hemoglobin 12.9 g/dL (14.0-18.0); Mean Corpuscular HGB CONC 33.7 g/dL (32.0-36.0); Mean Corpuscular Hemoglobin 30.1 pg (27.0-31.0); Mean Corpuscular Volume 89.5 fL (78.0-98.0); Platelet Count 358 10x3/uL (130-400); RBC Distribution Width 18.4 % (11.5-14.5); Red Blood Cell (RBC) Count 4.28 mill/uL (4.70-6.10)
[2024-07-09 04:53] LABS: ALT (SGPT) 81 U/L (8-55); AST (SGOT) 81 U/L (5-34); Albumin 2.7 g/dL (3.4-4.8); Alkaline Phosphatase 68 U/L (40-110); Anion Gap 14 mmol/L (10-20); BUN (Urea Nitrogen) 52 mg/dL (8.4-25.7); Calc. Creatinine Clearance 29 mL/min (70-130); Calcium 8.4 mg/dL (7.8-10.44); Carbon Dioxide 24 mmol/L (23-31); Chloride 101 mmol/L (98-107); Estimated GFR 32; Globulin 2.8 g/dL (2.4-3.5); Glucose 91 mg/dL (83-110); Magnesium 2.1 mg/dL (1.6-2.6); Potassium 4.2 mmol/L (3.5-5.1); Protein, Total 5.5 g/dL (5.8-8.1); Sodium 135 mmol/L (136-145)
[2024-07-09 05:18] LABS: Anisocytosis SLIGHT = 6-15 cells HPF (0-5); Band 11 % (5-11); Burr Cells MODERATE= 6-15 cells HPF (0-1); Elliptocytes SLIGHT = 2-5 cells HPF (0-1); Eosinophils 5 % (0-10); Hypochromia SLIGHT = 6-15 cells HPF (0-5); Large Platelets 15.8 % (0-5); Lymphocytes 12 % (21-51); Microcytosis SLIGHT = 6-15 cells HPF (0-5); Monocytes 5 % (0-10); Myelocyte 1 % (0-0); Neutrophil 61 % (42-75); Platelet Adequacy Comment Platelets Normal; Poikilocytosis SLIGHT = 6-15 cells HPF (0-5); Polychromasia SLIGHT = 2-3 cells HPF (0-2); Reactive Lymphocytes 5 % (0-10); Schistocytes SLIGHT = 2-5 cells HPF (0-1)
[2024-07-09] MEDS ORDERED: Lidocaine 1% PF 5 ML VIAL ONE (08:07)
[2024-07-09] MEDS ORDERED: Sodium Bicarbonate 2.5 MEQ/5 ML SDV ONE (08:07)
[2024-07-09] MEDS: Magnesium 2 GM/50 ML(in water) 2 GM in Premix 1 BAG IVPB SCH (10:35)
[2024-07-10 03:53] LABS: ALT (SGPT) 69 U/L (8-55); AST (SGOT) 58 U/L (5-34); Albumin 2.8 g/dL (3.4-4.8); Alkaline Phosphatase 66 U/L (40-110); Anion Gap 14 mmol/L (10-20); BUN (Urea Nitrogen) 54 mg/dL (8.4-25.7); Bilirubin, Total 0.9 mg/dL (0.2-1.2); Calc. Creatinine Clearance 31 mL/min (70-130); Calcium 8.5 mg/dL (7.8-10.44); Carbon Dioxide 21 mmol/L (23-31); Chloride 101 mmol/L (98-107); Estimated GFR 35; Globulin 2.9 g/dL (2.4-3.5); Glucose 87 mg/dL (83-110); Magnesium 2.3 mg/dL (1.6-2.6); Potassium 4.8 mmol/L (3.5-5.1); Protein, Total 5.7 g/dL (5.8-8.1); Sodium 131 mmol/L (136-145)
[2024-07-10 04:09] LABS: Hematocrit 39.5 % (42.0-52.0); Hemoglobin 13.5 g/dL (14.0-18.0); Mean Corpuscular HGB CONC 34.2 g/dL (32.0-36.0); Mean Corpuscular Hemoglobin 30.3 pg (27.0-31.0); Mean Corpuscular Volume 88.6 fL (78.0-98.0); Mean Platelet Volume 13.8 fL (7.4-10.4); Platelet Count 328 10x3/uL (130-400); RBC Distribution Width 18.2 % (11.5-14.5); Red Blood Cell (RBC) Count 4.46 mill/uL (4.70-6.10)
[2024-07-10 04:41] LABS: Anisocytosis MODERATE=16-30 cells HPF (0-5); Band 3 % (5-11); Elliptocytes SLIGHT = 2-5 cells HPF (0-1); Eosinophils 7 % (0-10); Large Platelets 61.6 % (0-5); Lymphocytes 10 % (21-51); Macrocytosis SLIGHT = 6-15 cells HPF (0-5); Monocytes 5 % (0-10); Neutrophil 73 % (42-75); Ovalocytes SLIGHT = 2-5 cells HPF (0-1); Platelet Adequacy Comment Platelets Normal; Poikilocytosis MODERATE=16-30 cells HPF (0-5); Polychromasia SLIGHT = 2-3 cells HPF (0-2); Smudge Cells 18.2 %
[2024-07-10 11:16] VITALS: BP 95/57
[2024-07-10] MEDS: Cosyntropin 250 MCG VIAL SLOW IVP SCH (12:18)
[2024-07-10] MEDS: Furosemide 40 MG (4 mL) VIAL SLOW IVP SCH (12:39)
[2024-07-10 16:26] VITALS: TEMP 97.2
== END 2024-07-10 21:20 | disposition short-term general hospital (02) | DRG 291 ==
LOC: IMCU/EMU 10:00
PROVIDERS: ADMIT Hospitalist; ATTEND Internal Medicine
PROC: 02HV33Z Insertion of Infusion Device into Superior Vena Cava, Percutaneous Approach (ICD-10-PCS; principal; 2024-07-09)
PROC: B5181ZA Fluoroscopy of Superior Vena Cava using Low Osmolar Contrast, Guidance (ICD-10-PCS; 2024-07-09)
DX: I13.0 Hypertensive heart and chronic kidney disease with heart failure and stage 1 through stage 4 chronic kidney disease, or unspecified chronic kidney disease (principal); I50.43 Acute on chronic combined systolic (congestive) and diastolic (congestive) heart failure; N18.4 Chronic kidney disease, stage 4 (severe); N17.9 Acute kidney failure, unspecified; I25.10 Atherosclerotic heart disease of native coronary artery without angina pectoris; I48.0 Paroxysmal atrial fibrillation; R74.01 Elevation of levels of liver transaminase levels; E80.6 Other disorders of bilirubin metabolism; E78.5 Hyperlipidemia, unspecified; I25.5 Ischemic cardiomyopathy; I35.0 Nonrheumatic aortic (valve) stenosis; K12.0 Recurrent oral aphthae; G25.81 Restless legs syndrome; Z88.0 Allergy status to penicillin; Z88.8 Allergy status to other drugs, medicaments and biological substances; Z98.890 Other specified postprocedural states; Z79.899 Other long term (current) drug therapy
CPT/HCPCS: 36415; 36569; 70450; 71045; 76937; 77001; 80053; 80400; 83735; 83880; 84443; 85025; 93306; 93798; C1751; J0696; J0834; J1650; J1940; J2260; J3475; Q9957

== ENCOUNTER 2024-08-30 13:55 | Inpatient (IN) | payer MEDICARE ==
[2024-08-30 15:17] LABS: Hematocrit 34.2 % (42.0-52.0); Hemoglobin 11.8 g/dL (14.0-18.0); Mean Corpuscular HGB CONC 34.5 g/dL (32.0-36.0); Mean Corpuscular Hemoglobin 30.1 pg (27.0-31.0); Mean Corpuscular Volume 87.2 fL (78.0-98.0); Platelet Count 378 10x3/uL (130-400); Red Blood Cell (RBC) Count 3.92 mill/uL (4.70-6.10)
[2024-08-30 15:22] LABS: Chloride 100 mmol/L (98-107); Potassium 4.4 mmol/L (3.5-5.1); Sodium 135 mmol/L (136-145)
[2024-08-30 15:23] LABS: Albumin 3.4 g/dL (3.4-4.8); Calcium 9.2 mg/dL (7.8-10.44); Glucose 120 mg/dL (83-110); Troponin I 0.062 ng/mL (< 0.028)
[2024-08-30 15:24] LABS: Globulin 3.3 g/dL (2.4-3.5); Protein, Total 6.7 g/dL (5.8-8.1)
[2024-08-30 15:25] LABS: Anion Gap 15 mmol/L (10-20); Carbon Dioxide 24 mmol/L (23-31)
[2024-08-30 15:26] LABS: Bilirubin, Total 0.8 mg/dL (0.2-1.2)
[2024-08-30 15:27] LABS: Alkaline Phosphatase 44 U/L (40-110); Calc. Creatinine Clearance 0 mL/min (70-130); Estimated GFR 14
[2024-08-30 15:28] LABS: BUN (Urea Nitrogen) 84 mg/dL (8.4-25.7)
[2024-08-30 15:29] LABS: ALT (SGPT) 10 U/L (8-55); AST (SGOT) 22 U/L (5-34)
[2024-08-30 15:50] LABS: Anisocytosis MODERATE=16-30 cells HPF (0-5); Band 5 % (5-11); Burr Cells MODERATE= 6-15 cells HPF (0-1); Eosinophils 6 % (0-10); Giant Platelets 1.9 % (0-5); Large Platelets 71.2 % (0-5); Lymphocytes 14 % (21-51); Macrocytosis SLIGHT = 6-15 cells HPF (0-5); Monocytes 4 % (0-10); Neutrophil 67 % (42-75); Ovalocytes SLIGHT = 2-5 cells HPF (0-1); Platelet Adequacy Comment Platelets Normal; Poikilocytosis SLIGHT = 6-15 cells HPF (0-5); Polychromasia SLIGHT = 2-3 cells HPF (0-2); Reactive Lymphocytes 2 % (0-10); Schistocytes SLIGHT = 2-5 cells HPF (0-1)
[2024-08-30] MEDS ORDERED: Furosemide 40 MG (4 mL) VIAL ONE (16:16)
[2024-08-30 16:27] LABS: Bilirubin Negative (Negative); Blood, Urine Negative (Negative); CAUTI Indications for Culture Dysuria,urgency,freq; Clarity Clear (Clear); Glucose, Urine (Dipstick) Normal (Negative); Ketone, Urine Negative (Negative); Leukocyte Negative Leu/uL (Negative); Nitrite Negative (Negative); Protein, Urine (Dipstick) 20 mg/dL (Neg-Trace); RBC/HPF 0-3 HPF (0-3); Specific Gravity, Urine 1.005 (1.002-1.036); Squamous Epithelial 0-3 HPF (0-3); Urobilinogen Normal mg/dL (Less than 2); WBC/HPF 0-3 HPF (0-3); pH, Urine 5.5 (5.0-9.0)
[2024-08-30 16:28] LABS: Bacteria/HPF 1+ HPF (None Seen)
[2024-08-30 16:30] LABS: Urine Culture Reflex No No
[2024-08-30] MEDS ORDERED: Acetaminophen 650 MG Suppository PR PRN (17:26)
[2024-08-30 17:46] LABS: Magnesium 2.7 mg/dL (1.6-2.6)
[2024-08-30] MEDS ORDERED: DOBUTamine 500 mg/250 ml 250 ML ONE (17:54)
[2024-08-30] MEDS ORDERED: DOBUTamine 500 mg/250 ml 250 ML IVPB SCH ×2 (18:15→22:11)
[2024-08-30 21:03] LABS: Creatinine, Urine 63.69 mg/dL (63-166)
[2024-08-30] MEDS: Ranolazine ER 500 MG TAB PO SCH (22:21)
[2024-08-30] MEDS: Acetaminophen 325 MG TAB PO PRN (22:23)
[2024-08-30] MEDS: rOPINIRole HCl 1 MG TAB PO SCH (22:25)
[2024-08-30] MEDS: Fluticasone Propionate Nasal Spray 16 gm Bottle NASAL SCH (22:25)
[2024-08-30] MEDS: Heparin 5,000 UNITS/ML VIAL SC SCH (22:25)
[2024-08-30] MEDS: DorzolamidE/Timolol 2%/0.5% Ophth Soln 10 ml Bottle L EYE SCH (22:42)
[2024-08-30] MEDS: cefTRIAXone (ROCEPHIN) 1 GM VIAL ONE (23:00)
[2024-08-30] MEDS: cefTRIAXone\\ROCEPHIN 1 GM in Sodium Chloride 0.9% 100 ML IVPB SCH (23:21)
[2024-08-30] MEDS: Azithromycin 500 MG VIAL ONE (23:22)
[2024-08-31] MEDS: Cyclobenzaprine 10 MG TAB PO SCH (00:23)
[2024-08-31] MEDS: Azithromycin 500 MG in Sodium Chloride 0.9% 250 ML 250 ML IVPB SCH (00:30)
[2024-08-31 02:04] LABS: #Basophils 0.06 10x3/uL (0.0-0.2); %Basophils 1.1 % (0.0-1.0); %Eosinophils 4.8 % (0.0-10.0); %Lymphocytes 22.8 % (21.0-51.0); %Neutrophils 64.6 % (42.0-75.0); Hematocrit 29.9 % (42.0-52.0); Mean Corpuscular HGB CONC 33.4 g/dL (32.0-36.0); Mean Corpuscular Hemoglobin 30.1 pg (27.0-31.0); Mean Corpuscular Volume 90.1 fL (78.0-98.0); Mean Platelet Volume 13.6 fL (7.4-10.4); Platelet Count 301 10x3/uL (130-400); Red Blood Cell (RBC) Count 3.32 mill/uL (4.70-6.10)
[2024-08-31 02:20] LABS: Anion Gap 17 mmol/L (10-20); BUN (Urea Nitrogen) 80 mg/dL (8.4-25.7); Calc. Creatinine Clearance 0 mL/min (70-130); Calcium 8.2 mg/dL (7.8-10.44); Carbon Dioxide 19 mmol/L (23-31); Chloride 103 mmol/L (98-107); Estimated GFR 15; Glucose 97 mg/dL (83-110); Magnesium 2.3 mg/dL (1.6-2.6); Phosphorus 4.9 mg/dL (2.3-4.7); Sodium 135 mmol/L (136-145)
[2024-08-31] MEDS: Albumin 25% 25 GM (100 mL) BOT IVPB SCH ×2 (02:23→10:01)
[2024-08-31 03:11] VITALS: BMI 25.4
[2024-08-31 03:20] LABS: Digoxin Less than 0.19 ng/mL (0.8-2.0)
[2024-08-31] MEDS: Digoxin 0.5 MG/2 ML AMP SLOW IVP SCH (04:54)
[2024-08-31 05:07] LABS: Anion Gap 17 mmol/L (10-20); BUN (Urea Nitrogen) 79 mg/dL (8.4-25.7); Calc. Creatinine Clearance 16 mL/min (70-130); Carbon Dioxide 22 mmol/L (23-31); Chloride 100 mmol/L (98-107); Estimated GFR 15; Glucose 102 mg/dL (83-110); Magnesium 2.5 mg/dL (1.6-2.6); Sodium 135 mmol/L (136-145)
[2024-08-31] MEDS ORDERED: Furosemide 40 MG (4 mL) VIAL SLOW IVP SCH (06:00)
[2024-08-31] MEDS ORDERED: Cosyntropin 250 MCG VIAL SLOW IVP SCH (08:00)
[2024-08-31] MEDS: Digoxin 0.125 MG TAB PO SCH (08:17)
[2024-08-31] MEDS: CO Q-10 CAPSULE 100 MG PO SCH (08:17)
[2024-08-31] MEDS: Montelukast Sodium 10 mg Tablet PO SCH (08:18)
[2024-08-31] MEDS: Loratadine 10 MG TAB PO SCH (08:19)
[2024-08-31] MEDS: Pantoprazole DR 40 MG TAB PO SCH (08:19)
[2024-08-31] MEDS: Clopidogrel Bisulfate 75 MG TAB PO SCH (08:19)
[2024-08-31] MEDS: DOPamine 400 MG/D5W 250 ML 250 ML IVPB SCH (09:30)
[2024-08-31] MEDS: ALPRAZolam 0.25 MG TAB PO SCH (12:14)
[2024-08-31 15:16] VITALS: BP 99/72
[2024-08-31] MEDS: DOBUTamine 500 mg/250 ml 250 ML IVPB SCH (20:33)
[2024-09-01 04:45] LABS: Glucose 130 mg/dL (83-110); Iron 39 ug/dL (65-175); Iron Binding Capacity, Total 360 mcg/dL (261-462)
[2024-09-01 04:47] LABS: #Basophils 0.04 10x3/uL (0.0-0.2); %Basophils 0.5 % (0.0-1.0); %Eosinophils 2.8 % (0.0-10.0); %Lymphocytes 19.1 % (21.0-51.0); %Monocytes 5.1 % (0.0-10.0); %Neutrophils 71.3 % (42.0-75.0); Hematocrit 35.6 % (42.0-52.0); Hemoglobin 11.4 g/dL (14.0-18.0); Mean Corpuscular Hemoglobin 29.8 pg (27.0-31.0); Mean Corpuscular Volume 93.2 fL (78.0-98.0); Mean Platelet Volume 13.5 fL (7.4-10.4); Platelet Count 343 10x3/uL (130-400); RBC Distribution Width 18.5 % (11.5-14.5); Red Blood Cell (RBC) Count 3.82 mill/uL (4.70-6.10)
[2024-09-01 05:25] LABS: Anion Gap 18 mmol/L (10-20); BUN (Urea Nitrogen) 78 mg/dL (8.4-25.7); Calc. Creatinine Clearance 17 mL/min (70-130); Calcium 8.8 mg/dL (7.8-10.44); Carbon Dioxide 21 mmol/L (23-31); Chloride 98 mmol/L (98-107); Estimated GFR 15; Magnesium 2.4 mg/dL (1.6-2.6); Potassium 4.9 mmol/L (3.5-5.1); Sodium 132 mmol/L (136-145)
[2024-09-01] MEDS: methylPREDNISolone Sod Succ 40 MG VIAL IVP SCH (09:50)
[2024-09-01] MEDS: predniSONE 20 MG TAB PO SCH (09:54)
[2024-09-01] MEDS: Levothyroxine Sodium 25 MCG TAB PO SCH (10:24)
[2024-09-01] MEDS: Sodium Bicarbonate Tab 325 MG TAB PO SCH (10:24)
[2024-09-01] MEDS: NOREPINEPHRINE 8 MG/250 ML-D5W 250 ML IVPB SCH (10:46)
[2024-09-01] MEDS: Sodium Ferric Gluconate 250 MG in Sodium Chloride 0.9% 250 ML 250 ML IVPB SCH (11:19)
[2024-09-01] MEDS: ALPRAZolam 0.25 MG TAB PO PRN (11:26)
[2024-09-01] MEDS ORDERED: Gabapentin 100 MG CAP PO SCH (13:45)
[2024-09-01] MEDS: Gabapentin 100 MG CAP PO SCH ×2 (13:56→19:57)
[2024-09-01] MEDS: Furosemide 100 MG (10 mL) VIAL SLOW IVP SCH (13:56)
[2024-09-01] MEDS: OLOPATADINE HCL EA NARE SCH (14:14)
[2024-09-02 04:28] LABS: Anion Gap 20 mmol/L (10-20); BUN (Urea Nitrogen) 78 mg/dL (8.4-25.7); Calc. Creatinine Clearance 17 mL/min (70-130); Calcium 8.8 mg/dL (7.8-10.44); Carbon Dioxide 18 mmol/L (23-31); Chloride 98 mmol/L (98-107); Estimated GFR 16; Glucose 157 mg/dL (83-110); Magnesium 2.5 mg/dL (1.6-2.6); Potassium 4.6 mmol/L (3.5-5.1); Sodium 131 mmol/L (136-145)
[2024-09-02 04:38] LABS: Hematocrit 32.2 % (42.0-52.0); Mean Corpuscular HGB CONC 34.2 g/dL (32.0-36.0); Mean Corpuscular Hemoglobin 30.3 pg (27.0-31.0); Mean Corpuscular Volume 88.7 fL (78.0-98.0); Mean Platelet Volume 13.4 fL (7.4-10.4); Platelet Count 336 10x3/uL (130-400); RBC Distribution Width 17.7 % (11.5-14.5); Red Blood Cell (RBC) Count 3.63 mill/uL (4.70-6.10)
[2024-09-02 06:06] LABS: Band 3 % (5-11); Giant Platelets 1.9 % (0-5); Large Platelets 31.1 % (0-5); Lymphocytes 7 % (21-51); Monocytes 1 % (0-10); Neutrophil 86 % (42-75); Nucleated RBC (Manual Ct) 1 % (0); Platelet Adequacy Comment Platelets Normal; Polychromasia SLIGHT = 2-3 cells HPF (0-2); Reactive Lymphocytes 1 % (0-10)
[2024-09-02] MEDS: Levothyroxine Sodium 25 MCG TAB PO SCH (06:23)
[2024-09-02] MEDS ORDERED: Vasopressin In 0.9 % NaCl 40 UNIT in Premix 1 BAG IV SCH (08:45)
[2024-09-02] MEDS: guaiFENesin ER 600 MG TAB PO SCH (09:28)
[2024-09-02] MEDS: Albumin 25% 25 GM (100 mL) BOT IVPB SCH (09:29)
[2024-09-02] MEDS: NOREPINEPHRINE 8 MG/250 ML-D5W 0 ML ONE (11:28)
[2024-09-02] MEDS: Metolazone 5 MG TAB PO SCH (11:31)
[2024-09-02] MEDS: Furosemide 100 MG (10 mL) VIAL SLOW IVP SCH (12:36)
[2024-09-02] MEDS: Sodium Bicarbonate Tab 325 MG TAB PO SCH (15:24)
[2024-09-03] MEDS: Docusate 100 MG CAP PO PRN (03:59)
[2024-09-03 11:18] VITALS: TEMP 97.9
== END 2024-09-03 09:00 | disposition hospice, home (50) | DRG 291 ==
LOC: SUATTDRO 13:55 → ERS 13:55 → PCU 20:05 → CCU 08-31 16:13
PROVIDERS: ADMIT Family Medicine; ATTEND Internal Medicine
DX: I13.0 Hypertensive heart and chronic kidney disease with heart failure and stage 1 through stage 4 chronic kidney disease, or unspecified chronic kidney disease (principal); I50.23 Acute on chronic systolic (congestive) heart failure; R57.0 Cardiogenic shock; N17.9 Acute kidney failure, unspecified; E87.1 Hypo-osmolality and hyponatremia; E87.21 Acute metabolic acidosis; Z66 Do not resuscitate; Z51.5 Encounter for palliative care; I25.5 Ischemic cardiomyopathy; N18.30 Chronic kidney disease, stage 3 unspecified; D50.9 Iron deficiency anemia, unspecified; I48.0 Paroxysmal atrial fibrillation; G25.81 Restless legs syndrome; E78.5 Hyperlipidemia, unspecified; Z88.8 Allergy status to other drugs, medicaments and biological substances; Z88.0 Allergy status to penicillin; Z88.5 Allergy status to narcotic agent; Z86.73 Personal history of transient ischemic attack (TIA), and cerebral infarction without residual deficits; I25.2 Old myocardial infarction; Z90.49 Acquired absence of other specified parts of digestive tract; Z87.891 Personal history of nicotine dependence; Z95.810 Presence of automatic (implantable) cardiac defibrillator; Z79.899 Other long term (current) drug therapy; Z79.02 Long term (current) use of antithrombotics/antiplatelets
CPT/HCPCS: 36415; 36416; 71045; 80048; 80053; 80162; 80400; 81001; 82040; 82570; 82728; 83540; 83550; 83605; 83735; 83880; 84100; 84145; 84156; 84300; 84443; 84484; 84540; 85025; 86141; 87040; 87428; 93005; 93306; 96365; 96366; 96375; J0456; J0696; J0834; J1160; J1250; J1265; J1644; J1940; J2916; J2919; J7050; J7512; P9047